=== PATIENT | female | born 1950 | race Caucasian/White ===

== ENCOUNTER 2016-09-29 18:41 | Inpatient (IN) | payer OTHER ==
[~2016-09-29] VITALS: Ht 162.6 cm; Wt 112.4 kg
--- NOTE | ~2016-09-29 | HC ---
[facility] [place] [address] CONSULTATION Name: EDWIN BARON Room #: 455-P [place] IN M.R.#: [id number] Admission: 09/29/16 Attend Phys: Carla Jaffe MD Discharge: Date of : 50 Report #: [id number] THIS REPORT FOR: //name// CC: Cathy Jaffe The patient is a 65-year-old obese white female who had a fall at home, was admitted with right hip and wrist pain. CT of the head was negative and wrist and hip x-rays were negative. She does have a prior history of nonalcoholic cirrhosis and has had problems with ongoing diarrhea. She was seen by gastroenterology and is to have a barium esophagram later today. She is noted to have a history of esophageal varices. She also has multiple leg wounds, which are being monitored. She does have a prior history of a peripheral neuropathy and a left foot drop that she relates back to a prior back surgery. We are seeing the patient in rehabilitation medicine consultation. PAST MEDICAL HISTORY: Includes hypertension, right nephrectomy, Appendectomy, , hysterectomy, chronic back pain, bipolar disorder, GERD, anemia, irritable bowel syndrome, prior history of a CVA, insulin-dependent diabetes mellitus, right knee surgery. PAST SURGICAL HISTORY: As noted above. HABITS: No history of tobacco or ETOH abuse. ALLERGIES: Multiple, see listing. MEDICATIONS: Please see the full medication listing. SOCIAL HISTORY: Lives in a house with a female significant other, premorbid cane ambulator inside and used the walker when she was outside. Two steps in with 12 inside. REVIEW OF SYSTEMS: Notes the wrist and hip pain are little better. Has problems with the diarrhea. She did not offer any complaints of chest pain, shortness of breath or abdominal discomfort. She does have the peripheral neuropathy with distal lower extremity numbness. PHYSICAL EXAMINATION: GENERAL: A 65-year-old white female in no obvious distress. She is significantly obese. VITAL SIGNS: Last recorded temperature is 98.2, pulse 103, respirations 20, blood pressure 99/51. She is a good historian. HEENT: Facies are symmetric. EXTREMITIES: Functional range of motion of both upper extremities. Strength is a grade 3+ to 4-/5. DTRs are trace to 1. Lower extremities, she has multiple small excoriations over her lower extremities. There are some punctate wounds. [facility] [address] [place] [address] CONSULTATION Name: EDWIN BARON Room #: 455-P [place] IN M.R.#: [id number] Admission: 09/29/16 Attend Phys: Carla Jaffe MD Discharge: Date of : 50 Report #: [id number] No focal calf swelling. She does have weakness of the left ankle in dorsiflexion, grade 3- to 3. She has decreased sensation mild to proprioception bilateral large toes. Strength of her lower extremities is probably a grade 4- except for that left ankle, which is weak in dorsiflexion. She was able to sit to stand with contact guard assistance and she ambulated 20 feet min assist with a front-wheeled walker. She does have problems with occasional right knee buckling. ASSESSMENT: A 65-year-old white female with the following problem list: 1. Fall at home. Right wrist and hip x-rays are negative. 2. Acute renal insufficiency, which has improved. 3. Multiple leg wound/open ulcers. 4. Diarrhea with history of severe gastroesophageal reflux disease. To have a barium esophagram today. 5. Hypertension. 6. Protein-calorie malnutrition. 7. Diabetes mellitus with peripheral neuropathy. 8. Premorbid left foot drop. 9. History of esophageal varices. PLAN: Therapies are working with her on transfers, mobility issues and will be assessing her ADLs. She refuses any type of nursing facility. I encouraged her to work hard in her therapies to try to further improve her strength and endurance. Hopefully, she will be able to return back home with home health care as she further medically stabilizes. Insurance will otherwise need to be checked regarding rehab therapy options. We will follow along with you. <ELECTRONICALLY SIGNED> By: Rogelio Neil MD 10/11/16 1523 1054 2325 Rogelio Neil MD /nt
--- NOTE | ~2016-09-29 | EKG ---
[place] [address] [facility] [place] [address] ELECTROCARDIOGRAM REPORT Name: MARIO BARONBRAVO KILGORE Room #: 455-P ADM IN M.R.#: [id number] Admission: 09/29/16 Attend Phys: Sahil Brown DO Discharge: Date of : 50 Report #: [id number] THIS REPORT FOR: //name// [facility] ED Test Date: 2016-09-29 Test Time: 21:38:59 Pat Name: EDWIN BARON Department: Room: [facility] Gender: F Log Getter: RK : 1950 Requested By: Valencia Castro Order Number: [id number] MD: Jose Gagnon Measurements Intervals [place] Rate: 56 P: -22 MS: 118 QRS: 6 QRSD: 85 T: 44 QT: 525 QTc: 507 Interpretive Statements Sinus rhythm Ventricular premature complex Borderline short MS interval Borderline T wave abnormalities Prolonged QT interval Compared to ECG 01/01/2015 19:13:47 Ventricular premature complex(es) now present T-wave abnormality now present Electronically Signed On 09-30-2016 8:23:37 CDT by Jose Gagnon [email or web address] <ELECTRONICALLY SIGNED> By: Jose Gagnon MD, [facility] 09/30/16 0823 37 37 Jose Gagnon MD, [facility] /EPI
--- NOTE | ~2016-09-29 | EKG ---
[address] [place] [address] ELECTROCARDIOGRAM REPORT Name: EDWIN BARONAntonio Room #: 455-P ADM IN M.R.#: [id number] Admission: 09/29/16 Attend Phys: Carla Jaffe MD Discharge: Date of : 50 Report #: [id number] THIS REPORT FOR: //name// [facility] Test Date: 2016-10-05 Test Time: 09:50:42 Pat Name: EDWIN BARON Department: Room: 455 P Gender: F Information Systems Audit Manager: PJ : 1950 Requested By: Francisco Javier Bahena Order Number: [id number] MD: Jose Gagnon Measurements Intervals [place] Rate: 48 P: -13 MO: 152 QRS: 11 QRSD: 96 T: 37 QT: 540 QTc: 483 Interpretive Statements Sinus bradycardia Abnormal R-wave progression, early transition Compared to ECG 09/29/2016 21:38:59 Low QRS voltage now present Sinus rhythm no longer present Ventricular premature complex(es) no longer present Electronically Signed On 10-06-2016 8:14:31 CDT by Jose Gagnon [email or web address] <ELECTRONICALLY SIGNED> By: Jose Gagnon MD, [facility] 10/06/16 0814 0950 0950 Jose Gagnon MD, [facility] /EPI
--- NOTE | ~2016-09-29 | P ---
[facility] [place] [address] PROCEDURE REPORT Name: EDWIN BARON Room #: 455-P ADM IN M.R.#: [id number] Admission: 09/29/16 Attend Phys: Carla Jaffe MD Discharge: Date of : 50 Report #: [id number] THIS REPORT FOR: //name// CC: Cathy Jaffe MD DATE OF SERVICE: 10/05/[address] Carla Jaffe and Dr. Cathy Yanes. CHIEF COMPLAINT: This is a very pleasant 65-year-old white female who has recurrent dysphagia. She has had multiple EGDs and dilatations done in the past. She has been noted previously to have had a fundoplication performed. She has been noted on one occasion in the old records that I have for reviewed to have grade 1 esophageal varices. She has had an upper GI series that reveals narrowing just distal to the end of the esophagus, uncertain etiology, but it may be part of her previous fundoplication. EGD is being performed today to evaluate for the causes for her dysphagia and to pass a dilator hopefully to alleviate her dysphagia. She says this has helped significantly in the past. Informed consent for this procedure was obtained prior to the administration of any medication. The risks of the procedure which include bleeding, perforation, infection, complications of sedation and the possibility I could miss something have been explained to the patient and she has indicated her consent by signing. Propofol was slowly titrated before and during this procedure for the patient comfort by the anesthesia service. The Fujinon upper videoscope was introduced through the upper esophageal sphincter and advanced under direct visualization to the descending duodenum. Findings are noted on withdrawal of the scope. The duodenal mucosa appears normal throughout its entirety. Pylorus, normal mucosa. Antrum, mildly erythematous mucosa. Body, mildly erythematous mucosa and portal hypertensive gastropathy is noted. Body portal hypertensive gastropathy is noted. Cardia and fundus, portal hypertensive gastropathy is noted. Retroflex view reveals a partially intact fundoplication particularly around the distal esophagus appears to the intact, but the gastric wrap itself appears to have come down, so I think there may be some scarring right at the level of the hiatal hernia that has kept the upper stomach/distal esophagus closed. This may be the source of her dysphagia. I saw no abnormalities mucosally at this level. The scope was then withdrawn up above the Z line which is appropriately located at the top of the gastric folds and appears normal. The esophageal mucosa appears normal throughout its entirety. Scope was advanced down into the stomach again, a guidewire was again advanced through the scope. The scope was withdrawn over the guidewire and then #51 Yemeni Savary dilator was passed over the guidewire without difficulty. The guidewire and the dilator were removed, [address] [address] PROCEDURE REPORT Name: EDWIN BARON Room #: 455-P [facility] IN M.R.#: [id number] Admission: 09/29/16 Attend Phys: Carla Jaffe MD Discharge: Date of : 50 Report #: [id number] and the TiVoinon upper videoscope was reintroduced through the upper esophageal sphincter and advanced under direct visualization to the distal stomach. Findings are noted. There were been no change in the appearance of the stomach distally or proximally. The scope was then withdrawn into the esophagus. The Z line is intact. I saw no evidence of bleeding in the stomach or the esophagus. I saw no evidence of any mucosa tear in the distal esophagus. The esophageal mucosa appears normal as did prior to the dilatation. The scope was withdrawn. The patient went to the recovery area in stable condition. She tolerated the procedure well. IMPRESSION: 1. Portal hypertensive gastropathy. This has been previously biopsied for H. pylori and was negative. 2. Fundoplication with tight area in the very proximal cardia of the stomach just below the Z-line that I think is probably causing her to have some dysphagia this is apparently relieved with Savary dilatation. 3. Normal appearing esophagus and duodenum. I saw no evidence of any gastric or esophageal varices. RECOMMENDATIONS: My recommendations are to continue on her current medication regimen. Thank you very much once again for allowing me to participate in her care. <ELECTRONICALLY SIGNED> By: Bárbara Love DO 10/06/16 0831 1108 2345 Bárbara Love DO /nt
[~2016-09-29 18:41] MED LIST: ACCUNEB SO1.25 MG/1 PO; ACETAMINOPHEN325 M1 PO; AMBIEN 10 MG TA10 MG PO; AMOXICILLIN 50500 MG PO; AUGMENTIN 875875 MG PO; CARAFATE 1 GM TA1 G1 PO; CARAFATE 11 GM/10 M1 PO; CEPACOL SORE T1 EAC9 PO; CIPRO500 MG PO; CLONAZEPAM 0.50.5 M1 PO; CLONAZEPAM 1 MG1 M1 PO; COLACE 100 MG100 MG PO; COLACE100 MG PO; CYMBALTA30 MG PO; CYMBALTA60 MG PO; DIABETA 2.5MG2.5 MG PO; DIABETA 5MG TABL5 MG; DIFLUCAN100 MG PO; DIPHENHIST25 M2 PO; DUONEB 2.5-0.5 M3 ML INH; ENABLEX 7.5 MG7.5 M1 PO; FEOSOL325 M1 PO; FLAGYL500 MG PO; GLUCOTROL5 MG PO; GLYCOLAX17 GM PO; HUMALOG100 UNIT/1 SUBQ; HYOSCYAMINE0.125 M1 SUBLING; HYOSCYAMINE0.125 MG PO; KLOR-CON 10 ER10 MEQ PO; LEVEMIR SUBQ; LEVSIN0.125 MG PO; LOPRESSOR 50 MG50 M1 PO; LOPRESSOR50 PO; MILK OF MA2400 MG/10 PO; MIRALAX17 GM PO; MOTION RELIEF25 MG PO; NEURONTIN 300300 M1 PO; NEURONTIN 400M400 M2 PO; NOHOMEMEDICATIONS; NYSTATIN 1100000 U/M PO; NYSTATIN-TRIAMC15 G1; OCEAN45 ML NS; OLANZAPINE5 MG PO; OXYCODONE HCL 55 MG PO; OXYCODONE HCL5 M1 PO; OXYCONTIN10 M1 PO; PERCOCET 5-3251 EACH PO; PERCOCET 7.5-31 EACH PO; PERCOCET PO; PRILOSEC20 MG PO; PRILOSEC40 MG PO; PROBIOTIC1 EAC1 PO; PROMETHAZINE12.5 M1 PO; PROPRANOLOL 1010 M1 PO; PROTONIX40 M1 PO; REMERON45 MG PO; RESTORIL7.5 MG PO; SENOKOT-S1 TA1 PO; TRANSDERM-SCO1 PATC1 TD; TRAZODONE HCL50 MG PO; VALIUM5 MG PO; ZOFRAN ODT4 MG SUBLING
[2016-09-29 18:42] VITALS: BP 151/68
[2016-09-29 19:04] LABS: ABSOLUTE NEUTROPHILS 2.5 thou/uL (1.4-8.2); BASOPHILS 1.2 % (0.0-2.0); EOSINOPHILS 1.8 % (0.0-3.0); HEMATOCRIT 31.8 % (37.0-47.0); HEMOGLOBIN 10.6 gm/dL (12.0-15.0); MCHC 33.4 g/dL (28.0-37.0); MCV 92.8 fL (80.0-100.0); MONOCYTES 7.2 % (1.0-8.0); PLATELET COUNT 126 thou/uL (150-400); POLYS 45.8 % (36.0-66.0); RBC 3.43 mil/uL (4.20-5.00); RDW 19.3 % (10.5-14.5); WBC 5.5 thou/uL (4.0-11.0)
[2016-09-29 19:05] LABS: MANUAL DIFF NO
[2016-09-29 19:13] LABS: CALCIUM 7.6 mg/dL (8.5-10.1); CREATININE 1.1 mg/dL (0.6-1.0); POTASSIUM 4.2 mmol/L (3.5-5.1)
[2016-09-29 19:18] LABS: ALBUMIN 1.8 g/dL (3.4-5.0); DIRECT BILIRUBIN 0.3 mg/dL (<0.1-0.3); TOTAL BILIRUBIN 0.9 mg/dL (<0.1-1.0); TOTAL PROTEIN 6.4 g/dL (6.4-8.2)
[2016-09-29] MEDS ORDERED: BELSOMRA20 MG PO (21:49)
[2016-09-29] MEDS ORDERED: LASIX 40 MG TAB40 M2 PO (21:50)
[2016-09-29] MEDS ORDERED: POTASSIUM20 PO (21:50)
[2016-09-29] MEDS ORDERED: LEVEMIR SUBQ (21:50)
[2016-09-29] MEDS ORDERED: BUSPIRONE HCL10 MG PO (21:51)
[2016-09-29] MEDS ORDERED: HYDROXYZINE HCL25 M1 PO (21:51)
[2016-09-29] MEDS ORDERED: ONDANSETRON HCL4 M2 PO (21:52)
[2016-09-29] MEDS ORDERED: ZANAFLEX4 MG PO (21:52)
[2016-09-29] MEDS ORDERED: PROBIOTIC1 EAC1 PO (21:52)
[2016-09-29] MEDS ORDERED: JUBLIA4 ML TP (21:53)
[2016-09-29] MEDS ORDERED: PANTOPRAZOLE SO40 M1 PO (21:53)
[2016-09-29] MEDS ORDERED: ZETIA10 MG PO (21:54)
[2016-09-29 23:00] VITALS: BP 149/89
[2016-09-29 23:39] VITALS: BP 164/91
[2016-09-30 04:23] VITALS: BP 87/41
[2016-09-30 06:51] LABS: ALBUMIN 1.7 g/dL (3.4-5.0); CALCIUM 7.4 mg/dL (8.5-10.1); CREATININE 1.2 mg/dL (0.6-1.0); MAGNESIUM 1.7 mg/dL (1.8-2.4); POTASSIUM 4.5 mmol/L (3.5-5.1); TOTAL BILIRUBIN 0.7 mg/dL (<0.1-1.0); TOTAL PROTEIN 5.8 g/dL (6.4-8.2)
[2016-09-30 07:20] LABS: FOLIC ACID 4.4 ng/mL (8.6-58.9); TSH 8.096 uIU/mL (0.358-3.740)
[2016-09-30 08:00] VITALS: BP 94/46
[2016-09-30 12:54] VITALS: BP 93/40
[2016-09-30 16:30] VITALS: BP 102/49
[2016-09-30 20:30] VITALS: BP 109/85
[2016-10-01 03:35] VITALS: BP 119/43
[2016-10-01 03:51] LABS: ABSOLUTE NEUTROPHILS 1.9 thou/uL (1.4-8.2); BASOPHILS 1.2 % (0.0-2.0); EOSINOPHILS 2.2 % (0.0-3.0); HEMATOCRIT 29.4 % (37.0-47.0); HEMOGLOBIN 9.8 gm/dL (12.0-15.0); LYMPHOCYTES 47.4 % (24.0-44.0); MANUAL DIFF NO; MCH 31.3 pg (26.0-34.0); MCHC 33.3 g/dL (28.0-37.0); MCV 94.1 fL (80.0-100.0); MONOCYTES 9.5 % (1.0-8.0); PLATELET COUNT 106 thou/uL (150-400); POLYS 39.7 % (36.0-66.0); RBC 3.13 mil/uL (4.20-5.00); RDW 19.2 % (10.5-14.5); WBC 4.7 thou/uL (4.0-11.0)
[2016-10-01 03:57] LABS: CALCIUM 7.1 mg/dL (8.5-10.1); CREATININE 1.1 mg/dL (0.6-1.0); POTASSIUM 4.3 mmol/L (3.5-5.1)
[2016-10-01 07:51] VITALS: BP 114/77
[2016-10-01 11:32] VITALS: BP 129/54
[2016-10-01 15:23] VITALS: BP 122/55
[2016-10-01 15:51] LABS: URINE BILIRUBIN NEGATIVE (Negative); URINE BLOOD NEGATIVE (Negative); URINE COLOR YELLOW; URINE GLUCOSE-RANDOM* NEGATIVE (Negative); URINE KETONES NEGATIVE (Negative); URINE LEUKOCYTES-REFLEX NEGATIVE (Negative); URINE PROTEIN (DIPSTICK) NEGATIVE (Negative); URINE SPECIFIC GRAVITY 1.025 (1.003-1.035)
[2016-10-01 20:31] VITALS: BP 129/49
[2016-10-01 23:10] LABS: GLYCOHEMOGLOBIN (HGB A1C) 5.6 % (4.8-5.6)
[2016-10-02 04:14] VITALS: BP 94/45
[2016-10-02 04:34] LABS: INR 1.3; PROTIME 13.9 Seconds (9.3-11.4)
[2016-10-02 04:38] LABS: CALCIUM 7.4 mg/dL (8.5-10.1); POTASSIUM 4.5 mmol/L (3.5-5.1)
[2016-10-02 08:00] VITALS: BP 104/73
[2016-10-02 12:20] VITALS: BP 147/67
[2016-10-02 16:40] VITALS: BP 106/61
[2016-10-02 19:50] VITALS: BP 110/56
[2016-10-03 04:00] VITALS: BP 102/30
[2016-10-03 05:09] LABS: CALCIUM 7.6 mg/dL (8.5-10.1); CREATININE 1.1 mg/dL (0.6-1.0); POTASSIUM 4.4 mmol/L (3.5-5.1)
[2016-10-03 08:37] VITALS: BP 99/51
[2016-10-03 13:05] VITALS: BP 110/49
[2016-10-03 16:45] VITALS: BP 97/47
[2016-10-03 19:32] VITALS: BP 105/52
[2016-10-04 03:37] VITALS: BP 93/43
[2016-10-04 08:05] VITALS: BP 96/71
[2016-10-04 12:21] VITALS: BP 106/68
[2016-10-04 15:56] VITALS: BP 112/56
[2016-10-04 19:27] VITALS: BP 95/54
[2016-10-05 04:35] VITALS: BP 111/48
[2016-10-05 07:12] VITALS: BP 103/55
[2016-10-05 12:09] VITALS: BP 120/66
[2016-10-05 13:59] LABS: % SATURATION 24 % (20-39); IRON 34 ug/dL (50-170); TIBC 139 ug/dL (250-450); UIBC 105 ug/dL
[2016-10-05 15:22] VITALS: BP 128/65
[2016-10-05 20:01] VITALS: BP 96/59
[2016-10-06 03:55] VITALS: BP 127/58
[2016-10-06 07:36] VITALS: BP 122/59
[2016-10-06 12:17] VITALS: BP 128/67
[2016-10-06 17:15] VITALS: BP 119/53
[2016-10-06 19:55] VITALS: BP 157/76
[2016-10-07 03:58] VITALS: BP 131/50
[2016-10-07 08:04] VITALS: BP 93/54
[2016-10-07 11:06] LABS: HEMATOCRIT 34.5 % (37.0-47.0); HEMOGLOBIN 11.4 gm/dL (12.0-15.0); MCH 31.2 pg (26.0-34.0); MCHC 33.1 g/dL (28.0-37.0); MCV 94.1 fL (80.0-100.0); RBC 3.67 mil/uL (4.20-5.00); RDW 19.4 % (10.5-14.5); WBC 5.5 thou/uL (4.0-11.0)
[2016-10-07 11:18] VITALS: BP 133/65
[2016-10-07 11:18] LABS: CALCIUM 7.8 mg/dL (8.5-10.1); POTASSIUM 3.7 mmol/L (3.5-5.1)
[2016-10-07 11:23] LABS: ALBUMIN 1.8 g/dL (3.4-5.0); TOTAL BILIRUBIN 0.7 mg/dL (<0.1-1.0); TOTAL PROTEIN 6.7 g/dL (6.4-8.2)
[2016-10-07 16:47] VITALS: BP 133/65
[2016-10-07 19:07] LABS: FREE T4 1.16 ng/dL (0.82-1.77)
[2016-10-07 19:20] VITALS: BP 150/99
[2016-10-08 03:14] VITALS: BP 106/42
[2016-10-08 04:59] LABS: HEMATOCRIT 29.8 % (37.0-47.0); HEMOGLOBIN 9.8 gm/dL (12.0-15.0); MCH 31.4 pg (26.0-34.0); RBC 3.14 mil/uL (4.20-5.00); RDW 19.3 % (10.5-14.5)
[2016-10-08 07:57] VITALS: BP 101/64
[2016-10-08 11:06] VITALS: BP 125/55
[2016-10-08 14:58] VITALS: BP 149/76
[2016-10-08 20:12] VITALS: BP 123/92
[2016-10-09 03:28] VITALS: BP 93/44
[2016-10-09 04:50] LABS: HEMATOCRIT 27.5 % (37.0-47.0); HEMOGLOBIN 9.4 gm/dL (12.0-15.0); MCV 94.1 fL (80.0-100.0); RBC 2.92 mil/uL (4.20-5.00); WBC 3.6 thou/uL (4.0-11.0)
[2016-10-09 04:59] LABS: ALBUMIN 1.4 g/dL (3.4-5.0); CALCIUM 7.6 mg/dL (8.5-10.1); TOTAL BILIRUBIN 0.7 mg/dL (<0.1-1.0); TOTAL PROTEIN 5.5 g/dL (6.4-8.2)
[2016-10-09 07:48] VITALS: BP 126/73
[2016-10-09 11:30] VITALS: BP 127/64
[2016-10-09 15:50] VITALS: BP 148/72
[2016-10-09 18:33] VITALS: BP 148/72
[2016-10-10 05:34] LABS: HEMATOCRIT 29.9 % (37.0-47.0); HEMOGLOBIN 9.9 gm/dL (12.0-15.0); MCH 31.4 pg (26.0-34.0); MCHC 33.1 g/dL (28.0-37.0); MCV 94.7 fL (80.0-100.0); RBC 3.16 mil/uL (4.20-5.00); RDW 18.9 % (10.5-14.5); WBC 3.8 thou/uL (4.0-11.0)
[2016-10-10 05:40] LABS: ALBUMIN 1.5 g/dL (3.4-5.0); CALCIUM 7.8 mg/dL (8.5-10.1); CREATININE 1.2 mg/dL (0.6-1.0); POTASSIUM 4.1 mmol/L (3.5-5.1); TOTAL BILIRUBIN 0.6 mg/dL (<0.1-1.0); TOTAL PROTEIN 5.7 g/dL (6.4-8.2)
[2016-10-10 05:48] VITALS: BP 120/55
[2016-10-10 07:09] VITALS: BP 114/66
[2016-10-10 11:20] VITALS: BP 129/59
[2016-10-10 15:16] VITALS: BP 113/63
[2016-10-10 19:25] VITALS: BP 133/74
[2016-10-11 03:57] LABS: ABSOLUTE NEUTROPHILS 2.3 thou/uL (1.4-8.2); BASOPHILS 0.3 % (0.0-2.0); EOSINOPHILS 2.4 % (0.0-3.0); HEMATOCRIT 30.9 % (37.0-47.0); HEMOGLOBIN 10.2 gm/dL (12.0-15.0); LYMPHOCYTES 39.8 % (24.0-44.0); MCH 31.4 pg (26.0-34.0); MCHC 33.1 g/dL (28.0-37.0); MCV 94.7 fL (80.0-100.0); MONOCYTES 7.3 % (1.0-8.0); PLATELET COUNT 108 thou/uL (150-400); POLYS 50.2 % (36.0-66.0); RBC 3.26 mil/uL (4.20-5.00); RDW 18.7 % (10.5-14.5); WBC 4.6 thou/uL (4.0-11.0)
[2016-10-11 04:00] VITALS: BP 88/39
[2016-10-11 04:01] LABS: MANUAL DIFF NO
[2016-10-11 04:04] LABS: CALCIUM 7.4 mg/dL (8.5-10.1); CREATININE 1.1 mg/dL (0.6-1.0); POTASSIUM 4.2 mmol/L (3.5-5.1)
[2016-10-11 07:24] VITALS: BP 86/42
[2016-10-11 12:23] VITALS: BP 131/56
[2016-10-11 19:42] VITALS: BP 110/64
[2016-10-12 03:44] VITALS: BP 98/42
[2016-10-12 07:21] VITALS: BP 104/62
[2016-10-12 09:46] LABS: CLARITY CLEAR; COLOR YELLOW
[2016-10-12 09:58] LABS: BF NUCLEATED CELLS 153; BF RBC 403
[2016-10-12 11:51] LABS: BF NEUTROPHILS 12
[2016-10-12 12:04] VITALS: BP 148/74
[2016-10-12 12:06] LABS: BF MACROPHAGE 0; MANUAL DIFF YES
[2016-10-12 15:07] LABS: BODY FLUID ALBUMIN 0.4 g/dL (()); BODY FLUID PROTEIN 0.8 g/dL (())
== END 2016-10-12 17:03 | disposition home or self-care (01) | DRG 441 ==
LOC: ER 18:41 → EROBS 21:35 → 4W 21:35
PROVIDERS: Emergency Medicine; Family Medicine; Hospitalist; Internal Medicine Endocrinology, Diabetes & Metabolism; Internal Medicine Gastroenterology; Nurse Practitioner; Nurse Practitioner Adult Health; Specialist
PROC: 0W9G3ZZ Drainage of Peritoneal Cavity, Percutaneous Approach (ICD-10-PCS; principal; 2016-10-05)
PROC: 0DJ08ZZ Inspection of Upper Intestinal Tract, Via Natural or Artificial Opening Endoscopic (ICD-10-PCS; 2016-10-10)
DX: K76.0 Fatty (change of) liver, not elsewhere classified (principal); E43 Unspecified severe protein-calorie malnutrition; A04.7 Enterocolitis due to Clostridium difficile; N17.9 Acute kidney failure, unspecified; Z68.41 Body mass index [BMI] 40.0-44.9, adult; K76.6 Portal hypertension; I10 Essential (primary) hypertension; F41.9 Anxiety disorder, unspecified; G89.29 Other chronic pain; M54.9 Dorsalgia, unspecified; F31.9 Bipolar disorder, unspecified; K21.9 Gastro-esophageal reflux disease without esophagitis; E11.42 Type 2 diabetes mellitus with diabetic polyneuropathy; M21.372 Foot drop, left foot; K31.84 Gastroparesis; K58.9 Irritable bowel syndrome, unspecified; K74.60 Unspecified cirrhosis of liver; K31.89 Other diseases of stomach and duodenum; D69.6 Thrombocytopenia, unspecified; R10.9 Unspecified abdominal pain; E11.43 Type 2 diabetes mellitus with diabetic autonomic (poly)neuropathy; D64.9 Anemia, unspecified; K59.00 Constipation, unspecified; Z79.899 Other long term (current) drug therapy; Z90.5 Acquired absence of kidney; Z90.49 Acquired absence of other specified parts of digestive tract; Z90.710 Acquired absence of both cervix and uterus; Z87.81 Personal history of (healed) traumatic fracture; Z86.73 Personal history of transient ischemic attack (TIA), and cerebral infarction without residual deficits; Z79.891 Long term (current) use of opiate analgesic; Z79.4 Long term (current) use of insulin; Z88.1 Allergy status to other antibiotic agents; Z88.8 Allergy status to other drugs, medicaments and biological substances
CPT/HCPCS: 10045; 62110; 62900; 70005

== ENCOUNTER 2016-11-09 16:25 | Inpatient (IN) | payer OTHER ==
[~2016-11-09] VITALS: Ht 162.6 cm; Wt 109.8 kg
[~2016-11-09 16:25] MED LIST changes: +BELSOMRA20 MG PO; +BUSPIRONE HCL10 MG PO; +HYDROXYZINE HCL25 M1 PO; +JUBLIA4 ML TP; +LASIX 40 MG TAB40 M2 PO; +ONDANSETRON HCL4 M2 PO; +PANTOPRAZOLE SO40 M1 PO; +POTASSIUM20 PO; +ZANAFLEX4 MG PO; +ZETIA10 MG PO
[2016-11-09 16:30] VITALS: BP 12/37; BP 124/37
[2016-11-09 17:00] LABS: ABSOLUTE NEUTROPHILS 2.7 thou/uL (1.4-8.2); BASOPHILS 0.9 % (0.0-2.0); EOSINOPHILS 2.3 % (0.0-3.0); HEMATOCRIT 32.7 % (37.0-47.0); HEMOGLOBIN 10.8 gm/dL (12.0-15.0); LYMPHOCYTES 39.6 % (24.0-44.0); MCH 32.5 pg (26.0-34.0); MCHC 33.1 g/dL (28.0-37.0); MONOCYTES 5.5 % (1.0-8.0); PLATELET COUNT 119 thou/uL (150-400); POLYS 51.7 % (36.0-66.0); RBC 3.34 mil/uL (4.20-5.00); RDW 16.6 % (10.5-14.5); WBC 5.3 thou/uL (4.0-11.0)
[2016-11-09 17:03] LABS: MANUAL DIFF NO
[2016-11-09 17:41] LABS: CALCIUM 7.7 mg/dL (8.5-10.1); POTASSIUM 3.6 mmol/L (3.5-5.1)
[2016-11-09 17:44] LABS: ALBUMIN 1.7 g/dL (3.4-5.0); DIRECT BILIRUBIN 0.4 mg/dL (<0.1-0.3); TOTAL PROTEIN 6.4 g/dL (6.4-8.2)
[2016-11-09 18:18] LABS: URINE BILIRUBIN 2+ (Negative); URINE BLOOD NEGATIVE (Negative); URINE COLOR YELLOW; URINE GLUCOSE-RANDOM* NEGATIVE (Negative); URINE KETONES TRACE (Negative); URINE NITRITE NEGATIVE (Negative); URINE PROTEIN (DIPSTICK) 1+ (Negative); URINE SPECIFIC GRAVITY >= 1.030 (1.003-1.035)
[2016-11-09 18:21] LABS: ICTOTEST (BILI CONFIRMATORY) Negative (Negative)
[2016-11-09 18:29] LABS: CASTS None Seen /LPF (None Seen); SQUAMOUS >10 Many /LPF (0-3); URINE WBC 0-5 Rare /HPF (0-5)
[2016-11-09 18:30] LABS: BACTERIA 1-9 Few /HPF (None Seen); CRYSTALS None Seen /LPF (None Seen); URINE RBC 0-2 Rare /HPF (0-2)
[2016-11-09 18:55] VITALS: BP 135/60
[2016-11-09 19:08] VITALS: BP 122/53
[2016-11-09] MEDS ORDERED: LASIX 40 MG TAB40 M2 PO (20:19)
[2016-11-09 23:30] VITALS: BP 124/79
[2016-11-10 05:50] VITALS: BP 85/46
[2016-11-10 07:35] VITALS: BP 89/43
[2016-11-10 10:39] LABS: HEMATOCRIT 31.3 % (37.0-47.0); HEMOGLOBIN 10.5 gm/dL (12.0-15.0); MCH 32.4 pg (26.0-34.0); MCHC 33.4 g/dL (28.0-37.0); RBC 3.23 mil/uL (4.20-5.00); RDW 16.1 % (10.5-14.5); WBC 4.7 thou/uL (4.0-11.0)
[2016-11-10 10:42] LABS: INR 1.3; PROTIME 13.4 Seconds (9.3-11.4)
[2016-11-10] MEDS ORDERED: ZOFRAN ODT4 MG DISSOLVE (10:46)
[2016-11-10 15:12] VITALS: BP 89/43
== END 2016-11-10 16:35 | disposition home or self-care (01) | DRG 947 ==
LOC: ER 16:25 → EROBS 18:23 → 4E 18:23
PROVIDERS: Hospitalist; Nurse Practitioner
PROC: 0W9G3ZZ Drainage of Peritoneal Cavity, Percutaneous Approach (ICD-10-PCS; principal; 2016-11-10)
DX: R18.8 Other ascites (principal); E43 Unspecified severe protein-calorie malnutrition; K72.90 Hepatic failure, unspecified without coma; I10 Essential (primary) hypertension; F41.9 Anxiety disorder, unspecified; G89.29 Other chronic pain; M54.9 Dorsalgia, unspecified; F31.9 Bipolar disorder, unspecified; K58.9 Irritable bowel syndrome, unspecified; K21.9 Gastro-esophageal reflux disease without esophagitis; Z86.73 Personal history of transient ischemic attack (TIA), and cerebral infarction without residual deficits; Z87.81 Personal history of (healed) traumatic fracture; Z88.8 Allergy status to other drugs, medicaments and biological substances; Z90.710 Acquired absence of both cervix and uterus; Z90.5 Acquired absence of kidney; Z90.49 Acquired absence of other specified parts of digestive tract; Z88.6 Allergy status to analgesic agent
CPT/HCPCS: 10183

== ENCOUNTER 2016-11-21 19:05 | Inpatient (IN) | payer OTHER ==
[~2016-11-21] VITALS: Ht 162.6 cm; Wt 111.1 kg
--- NOTE | ~2016-11-21 | EKG ---
[place] [address] [facility] [place] [address] ELECTROCARDIOGRAM REPORT Name: EDWIN BARON JAME Room #: 313-P ADM IN M.R.#: [id number] Admission: 11/21/16 Attend Phys: Jaye Hayes Discharge: Date of : 50 Report #: [id number] THIS REPORT FOR: //name// [facility] ED Test Date: 2016-11-21 Test Time: 19:20:38 Pat Name: EDWIN BARON Department: Room: [facility] Gender: F Special Procedure Technologist: imani gonzalez : 1950 Requested By: Kassi Britt Order Number: [id number] MD: Jose Gagnon Measurements Intervals [place] Rate: 72 P: 0 MT: 168 QRS: -5 QRSD: 93 T: 137 QT: 491 QTc: 538 Interpretive Statements Sinus rhythm Anteroseptal infarct, age indeterminate Prolonged QT interval Compared to ECG 10/05/2016 09:50:42 No significant change was found Electronically Signed On 11-22-2016 8:55:10 CDT by Jose Gagnon [email or web address] <ELECTRONICALLY SIGNED> By: Jose Gagnon MD, [facility] 11/22/16 0855 1920 19 Jose Gagnon MD, [facility] /EPI
--- NOTE | ~2016-11-21 | CNG ---
[facility] [place] [address] CYTO-NONGYN REPORT PROCEDURE Name: EDWIN BA Room #: 313-P ADM IN M.R.#: [id number] Admission: 11/21/16 Date of : 50 Discharge: Report #: [id number] Path Case #: [id number] CYTOPATHOLOGY REPORT COLLECTION DATE: 11/22/2016 RECEIVED DATE: 11/22/2016 SUBMITTING PHYS: Dr. Jaye Hayes OTHER PHYS: Dr. Keith Yanes CLINICAL HISTORY: Ascites SPECIMEN(S) RECEIVED: A.Abdominal fluid * * * * * * * * * * * * FINAL DIAGNOSIS: Abdominal fluid: - Atypical cells identified. - Atypical cells identified amongst reactive mesothelial and inflammatory cells and fungal contaminants. COMMENT: Immunoperoxidase stains Jony-EP4 is negative and calretinin is positive. The atypical cells are mesothelial in origin. Patient has a history of liver failure and hence these could be secondary to that. However suggest clinical correlation and follow up as clinically indicated. (SHA:; d/t: 11/23/16) PATHOLOGIST: Gil Preston M.D. REPORT ELECTRONICALLY SIGNED BY: Gil Preston M.D. DATE/TIME: 11/24/2016 10:09 * * * * * * * * * * * * GROSS PATHOLOGY: A. Abdominal fluid: The specimen is submitted unfixed, labeled "Edwin Ba". Received by the Cytology Department is 33 mL of clear yellow fluid. One ThinPrep slide and a cell block were prepared. (mm 11.22.2016) EMPLOYEE RELATIONS CONSULTANT(S): YIMI White([facility]) INITIAL CPT CODE(S): A; 35407, 74518, 44328, 09987 Professional [facility] performed by [facility] at [facility] [address], [place] [address] [facility] [address] [place] [address] CYTO-NONGYN REPORT PROCEDURE Name: EDWIN BA Room #: 313-P ADM IN M.R.#: [id number] Admission: 11/21/16 Date of : 50 Discharge: Report #: [id number] Path Case #: [id number] Technical services performed by [facility] at [address] [place] [address], [facility] [address], [place] [address]. [address], [facility] [address] [place] [address] PHONE: [phone] DIRECTOR: Gera Garcia M.D. * * * END OF REPORT * * *
[~2016-11-21 19:05] MED LIST changes: +ZOFRAN ODT4 MG DISSOLVE
[2016-11-21 19:06] VITALS: BP 133/52
[2016-11-21 19:57] LABS: ABSOLUTE NEUTROPHILS 2.9 thou/uL (1.4-8.2); BASOPHILS 1.5 % (0.0-2.0); EOSINOPHILS 1.2 % (0.0-3.0); HEMATOCRIT 33.5 % (37.0-47.0); HEMOGLOBIN 11.5 gm/dL (12.0-15.0); LYMPHOCYTES 43.3 % (24.0-44.0); MANUAL DIFF NO; MCH 32.9 pg (26.0-34.0); MCHC 34.3 g/dL (28.0-37.0); MCV 95.9 fL (80.0-100.0); PLATELET COUNT 151 thou/uL (150-400); RBC 3.49 mil/uL (4.20-5.00); RDW 16.1 % (10.5-14.5); WBC 6.1 thou/uL (4.0-11.0)
[2016-11-21 20:07] LABS: ANION GAP 6 mmol/L (7-16); BUN 13 mg/dL (7-18); CHLORIDE 102 mmol/L (98-107); CO2 31 mmol/L (21-32); CREATININE 1.3 mg/dL (0.6-1.0); GLUCOSE 115 mg/dL (74-106); POTASSIUM 3.6 mmol/L (3.5-5.1); SODIUM 139 mmol/L (136-145)
[2016-11-21 20:13] LABS: ALBUMIN 1.6 g/dL (3.4-5.0); ALKALINE PHOSPHATASE 356 U/L (46-116); SGOT 32 U/L (15-37); SGPT 17 U/L (30-65); TOTAL BILIRUBIN 1.2 mg/dL (<0.1-1.0); TOTAL PROTEIN 6.6 g/dL (6.4-8.2); TROPONIN-I < 0.04 ng/mL (<0.04-0.07)
[2016-11-21 20:43] LABS: INR 1.2; PROTIME 12.7 Seconds (9.3-11.4)
[2016-11-21 20:44] LABS: URINE BLOOD TRACE (Negative); URINE COLOR YELLOW; URINE GLUCOSE-RANDOM* NEGATIVE (Negative); URINE KETONES TRACE (Negative); URINE NITRITE NEGATIVE (Negative); URINE PROTEIN (DIPSTICK) TRACE (Negative); URINE UROBILINOGEN >= 8.0 E.U./dl (0.2-1.0)
[2016-11-21 20:45] LABS: URINE BILIRUBIN NEGATIVE (Negative)
[2016-11-21 22:38] VITALS: BP 133/72
[2016-11-21 23:27] VITALS: BP 150/60
[2016-11-22 04:17] VITALS: BP 93/48
[2016-11-22 05:31] LABS: HEMATOCRIT 29.8 % (37.0-47.0); HEMOGLOBIN 10.2 gm/dL (12.0-15.0); MCHC 34.2 g/dL (28.0-37.0); MCV 96.4 fL (80.0-100.0); RBC 3.09 mil/uL (4.20-5.00); RDW 16.3 % (10.5-14.5); WBC 5.7 thou/uL (4.0-11.0)
[2016-11-22 05:34] LABS: INR 1.3; PROTIME 13.4 Seconds (9.3-11.4)
[2016-11-22 05:44] LABS: ALBUMIN 1.3 g/dL (3.4-5.0); CALCIUM 7.5 mg/dL (8.5-10.1); CREATININE 1.2 mg/dL (0.6-1.0); POTASSIUM 3.6 mmol/L (3.5-5.1); TOTAL BILIRUBIN 0.9 mg/dL (<0.1-1.0); TOTAL PROTEIN 5.7 g/dL (6.4-8.2)
[2016-11-22 07:33] VITALS: BP 90/49
[2016-11-22 15:32] LABS: BF NUCLEATED CELLS 114; BF RBC 580
[2016-11-22 15:33] LABS: CLARITY SLIGHTLY CLOUDY; COLOR YELLOW; MANUAL DIFF YES; TOTAL VOLUME 60 mL
[2016-11-22 16:09] VITALS: BP 129/53
[2016-11-22 20:00] VITALS: BP 112/56
[2016-11-22 21:11] LABS: BODY FLUID AMYLASE < 3 U/L (()); BODY FLUID GLUCOSE 109 mg/dL (()); BODY FLUID LDH 43 IU/L (()); BODY FLUID PROTEIN 0.8 g/dL (())
[2016-11-23] VITALS: BP 63/44
[2016-11-23 00:10] LABS: BODY FLUID ALBUMIN 0.3 g/dL (())
[2016-11-23 04:00] VITALS: BP 82/47
[2016-11-23 06:03] LABS: ALBUMIN 1.4 g/dL (3.4-5.0); CALCIUM 7.3 mg/dL (8.5-10.1); CREATININE 1.2 mg/dL (0.6-1.0); POTASSIUM 3.4 mmol/L (3.5-5.1); TOTAL BILIRUBIN 0.6 mg/dL (<0.1-1.0); TOTAL PROTEIN 5.1 g/dL (6.4-8.2)
[2016-11-23 07:52] VITALS: BP 151/77
[2016-11-23] MEDS ORDERED: SPIRONOLACTONE100 M1 PO (10:07)
[2016-11-23 20:30] VITALS: BP 108/58
[2016-11-24 05:00] VITALS: BP 101/59
[2016-11-24 08:03] VITALS: BP 109/60
[2016-11-24 13:31] LABS: BF MACROPHAGE 70; BF NEUTROPHILS 10
== END 2016-11-24 15:00 | DRG 432 ==
LOC: ER 19:05 → 3N 21:57 → EROBS 21:57 → 3N 22:40
PROVIDERS: Hospitalist; Nurse Practitioner Family; Physician Assistant
PROC: 0W9G3ZZ Drainage of Peritoneal Cavity, Percutaneous Approach (ICD-10-PCS; principal; 2016-11-22)
DX: K74.60 Unspecified cirrhosis of liver (principal); E43 Unspecified severe protein-calorie malnutrition; N17.9 Acute kidney failure, unspecified; R18.8 Other ascites; Z68.41 Body mass index [BMI] 40.0-44.9, adult; F41.9 Anxiety disorder, unspecified; F31.9 Bipolar disorder, unspecified; G89.29 Other chronic pain; M54.9 Dorsalgia, unspecified; K21.9 Gastro-esophageal reflux disease without esophagitis; N18.9 Chronic kidney disease, unspecified; K59.00 Constipation, unspecified; K29.70 Gastritis, unspecified, without bleeding; E11.22 Type 2 diabetes mellitus with diabetic chronic kidney disease; D64.9 Anemia, unspecified; K75.81 Nonalcoholic steatohepatitis (NASH); M19.90 Unspecified osteoarthritis, unspecified site; E87.6 Hypokalemia; K58.9 Irritable bowel syndrome, unspecified; I12.9 Hypertensive chronic kidney disease with stage 1 through stage 4 chronic kidney disease, or unspecified chronic kidney disease; Z86.73 Personal history of transient ischemic attack (TIA), and cerebral infarction without residual deficits; Z79.899 Other long term (current) drug therapy; Z86.14 Personal history of Methicillin resistant Staphylococcus aureus infection; Z90.710 Acquired absence of both cervix and uterus; Z88.8 Allergy status to other drugs, medicaments and biological substances; Z88.1 Allergy status to other antibiotic agents; Z88.6 Allergy status to analgesic agent; Z90.49 Acquired absence of other specified parts of digestive tract; Z87.81 Personal history of (healed) traumatic fracture
CPT/HCPCS: 10096; 10795; 27001; 52295

== ENCOUNTER 2017-04-23 17:24 | Inpatient (IN) | payer OTHER ==
[~2017-04-23] VITALS: Ht 160 cm; Wt 94.2 kg
--- NOTE | ~2017-04-23 | HC ---
[facility] [place] [address] CONSULTATION Name: EDWIN BARON Room #: 356-P [facility] IN M.R.#: [id number] Admission: 04/23/17 Attend Phys: Jaye Hayes Discharge: Date of : 50 Report #: [id number] THIS REPORT FOR: //name// CC: FAM physician/PCP Jaye Bates PRIMARY CARE PHYSICIAN: Dr. Cathy Yanes. REFERRAL PHYSICIAN: Dr. Sylvester Bates. REASON FOR REFERRAL: Dyspnea, abnormal chest x-ray. HISTORY OF PRESENT ILLNESS: The patient is a 66-year-old white female who presents to the emergency room with progressive dyspnea. Chest x-ray revealed right-sided pleural effusion. The patient was admitted. A pulmonary consultation was requested. The patient has complex multiple medical problems including cirrhosis and ascites from nonalcoholic fatty liver disease. She has had multiple paracenteses in the past. The patient was in her usual state of health until about 1-2 weeks ago when she started to develop mild abdominal pain, then increasing dyspnea. With worsening symptoms, she presented to the emergency room. Chest x-ray performed in the ER revealed qwsd-ax-oymetzqj sized right-sided pleural effusion and/or infiltrates. The patient otherwise denies any fever, chest pain, productive cough, nausea, vomiting, diarrhea. PAST MEDICAL HISTORY: Cirrhosis due to nonalcoholic fatty liver disease, ascites with multiple paracenteses in the past, hypertension, anxiety, depression, chronic back pain, gastroesophageal reflux disease, chronic anemia, irritable bowel syndrome, history of CVA, diabetes mellitus type 2, history of diverticulitis with past history of anasarca related to hepatic cirrhosis. PAST SURGICAL HISTORY: Notable for tonsillectomy, appendectomy, laparoscopic cholecystectomy, , hysterectomy, tubal ligation, past spine surgery, elbow surgery, right carpal tunnel surgery, Bhanu fundoplication, back surgery, right knee surgery, ankle surgery. ALLERGIES: Multiple, which include ASPIRIN, CARBAMAZEPINE, DICLOFENAC, FAMOTIDINE, METFORMIN, METOCLOPRAMIDE, MISOPROSTOL, PROCHLORPERAZINE, SEROQUEL, RANITIDINE , TETRACYCLINE. [facility] [address] [place] [address] CONSULTATION Name: EDWIN BARON Room #: 356-P [facility] IN ..#: [id number] Admission: 04/23/17 Attend Phys: Jaye Hayes Discharge: Date of : 50 Report #: [id number] REPORTED MEDICATIONS: Include Lopressor, Zofran, Protonix, Neurontin, insulin supplements, Remeron, Carafate, Levemir, potassium supplements, hydroxyzine, Zanaflex, ____, buspirone, Aldactone, tizanidine, Cymbalta, Zetia, Lasix, ____, Flonase. FAMILY HISTORY: Noncontributory. SOCIAL HISTORY: She denies any tobacco or alcohol use. She lives with a friend in the [place] area. REVIEW OF SYSTEMS: As mentioned above, is also notable for mild debility and weakness, she gets around with a wheelchair and has done so for more than a year. Otherwise 10-point system review negative. PHYSICAL EXAMINATION: GENERAL: She is awake, alert, in no apparent distress. VITAL SIGNS: Temperature is 98.6 degrees Fahrenheit, pulse is 67, respiratory rate is 18, blood pressure 150/69 mmHg, saturation 99%. HEENT: Normocephalic, atraumatic. NECK: Supple, without any lymphadenopathy or thyromegaly. CHEST: Breath sounds are decreased bilaterally in the bases. No obvious wheezes. No obvious rales. CARDIOVASCULAR: Heart sounds are distant. No obvious murmurs or gallop. There is normal rhythm. Pulses are 2+/4+ bilaterally. BREASTS: Exam deferred. ABDOMEN: Obese, soft, nontender. No organomegaly or masses felt. GENITOURINARY: Deferred. RECTAL: Deferred. EXTREMITIES: No cyanosis, clubbing or edema. LABORATORY DATA: Portable chest x-ray mentioned above showing [id number] right-sided pleural effusion and/or infiltrates. BNP is 1900. EKG shows atrial fibrillation with multiple ventricular premature complexes, low QRS complex, no acute ischemic changes. CT abdomen and pelvis revealed presence of ascites, decreased from November 2016, cirrhosis, right pleural effusion with atelectasis and infiltrates, which appears to be new. Electrolytes unremarkable except for creatinine of 1.2. SGOT is 39, SGPT 26, alkaline phosphatase 305. Albumin 1.5. WBC 6900, hemoglobin 9.8, platelets mildly decreased, no evidence of bandemia. IMPRESSION: 1. Progressive dyspnea in this 66-year-old white female. Chest x-ray shows fkvr-[id number]-pendgrbz right-sided pleural effusion, possible infiltrates. Etiology is possibly related to right-sided pleural effusion, possible pneumonia. 2. Cirrhosis due to nonalcoholic fatty liver disease, with history of ascites. The pleural effusion is likely related to liver disease. 3. Renal insufficiency. The patient appears to have chronic kidney disease [facility] [address] [place] [address] CONSULTATION Name: EDWIN BARON Room #: 356-P ADM IN M.R.#: [id number] Admission: 04/23/17 Attend Phys: Jaye Hayes Discharge: Date of : 50 Report #: [id number] with a baseline creatinine ranging anywhere from 1.2-1.9. 4. Anemia, likely chronic. 5. Protein calorie malnutrition, severe with an albumin of 1.5. 6. Hypertension. 7. Diabetes mellitus type 2. RECOMMENDATIONS: 1. Agree with plans for diagnostic thoracentesis. We will send pleural fluid for diagnostic studies including microbiologic and chemistry. Agree with empiric antibiotics for now. We will complete approximately 7 days of antibiotic therapy. We will await the pleural fluid studies. 2. DVT and GI prophylaxis is recommended. Thank you for this consultation. <ELECTRONICALLY SIGNED> By: Antonio Harden MD 04/25/17 1414 1237 1837 Antonio Harden MD /nt
--- NOTE | ~2017-04-23 | 2DMMODE ---
[facility] [address] [place] [address] 2 D/M-MODE ECHOCARDIOGRAM Name: MARIO BARONNDA Bertha Room #: 356-P ADM IN .R.#: [id number] Admission: 04/23/17 Attend Phys: Jaye Akbar Discharge: Date of : 50 Date of Service: 04/24/17 1238 Report #: [id number] THIS REPORT FOR: //name// APPROVED REPORT Study performed: 04/24/2017 11:20:00 EXAM: Comprehensive 2D, Doppler, and color-flow Echocardiogram Patient Location: Bedside Room #: 356 Status: routine BSA: 1.95 HR: 61 bpm BP: 159/61 mmHg Rhythm: Irregular Other Information Study Quality: Adequate Indications Short of breath 2D Dimensions RVDd: 35.32 mm LVEF(%): 66.45 (>50%) IVSd: 10.79 (7-11mm) LVOT Diam: 19.83 (18-24mm) LVDd: 44.46 mm PWd: 11.50 (7-11mm) Ascending Ao: 32.89 (22-36mm) LVDs: 28.23 (25-40mm) Aortic Root: 27.38 mm IVC: 22.00 mm Figueroa's LVEF: 66.45 % Volumes Left Atrial Volume (Systole) Single Plane 4CH: 102.09 mL Single Plane 2CH: 95.73 mL LA ESV Index: 54.00 mL/m2 Aortic Valve AoV Peak Barry.: 1.77 m/s AO Peak Gr.: 12.47 mmHg LVOT Max P.77 mmHg LVOT Max V: 1.30 m/s ROSIO Vmax: 2.27 cm2 Mitral Valve E/A Ratio: 1.6 MV Decel. Time: 243.28 ms [facility] [address] [place] [address] 2 D/M-MODE ECHOCARDIOGRAM Name: EDWIN BARON Room #: 356-[facility] IN M.R.#: [id number] Admission: 04/23/17 Attend Phys: Jaye Akbar Discharge: Date of : 50 Date of Service: 04/24/17 1238 Report #: [id number] MV E Max Barry.: 0.92 m/s MV A Barry.: 0.57 m/s MV PHT: 70.55 ms IVRT: 79.58 ms Pulmonary Valve PV Peak Barry.: 0.69 m/s PV Peak Gr.: 1.92 mmHg Tricuspid Valve TR Peak Barry.: 3.12 m/s RAP Estimate: 10.00 mmHg TR Peak Gr.: 39.19 mmHg Left Ventricle The left ventricle is normal size. There is normal LV segmental wall motion. There is normal left ventricular wall thickness. Left ventricular systolic function is normal. LVEF is 55-60%. This study is not technically sufficient to allow evaluation of the LV diastolic function. Right Ventricle The right ventricle is normal size. The right ventricular systolic function is normal. Atria Left atrium is severely dilated. Right atrium is mildly dilated. Aortic Valve The Aortic valve is mildly sclerotic. No aortic regurgitation is present. There is no aortic valvular stenosis. Mitral Valve Mild mitral annular calcification. Mild mitral regurgitation. Tricuspid Valve The tricuspid valve is normal in structure. Moderate tricuspid regurgitation. Estimated PAP is 50mmHg. Pulmonic Valve The pulmonary valve is normal in structure. Mild pulmonic regurgitation. Great Vessels The aortic root is normal in size. The ascending aorta is normal in size. IVC is dilated and collapses <50% with [facility] [address] [place] [address] 2 D/M-MODE ECHOCARDIOGRAM Name: EDWIN BARON Bertha Room #: 356-P [facility] IN ..#: [id number] Admission: 04/23/17 Attend Phys: Jaye Akbar Discharge: Date of : 50 Date of Service: 04/24/17 1238 Report #: [id number] inspiration. Pericardium There is no pericardial effusion. <Conclusion> Left ventricular systolic function is normal. There is normal LV segmental wall motion. LVEF 55-60%. Left atrium is severely dilated. The aortic valve is mildly sclerotic, no aortic valvular stenosis or insufficiency. Mild mitral annular calcification. Mild mitral regurgitation. Pulmonary artery pressure of 50mmHg There is no pericardial effusion. <ELECTRONICALLY SIGNED> By: Jose Gagnon MD, FACC 04/24/17 1238 1238 1238 Jose Gagnon MD, FACC /INF
--- NOTE | ~2017-04-23 | EKG ---
[address] [place] [address] ELECTROCARDIOGRAM REPORT Name: EDWIN BARON Room #: 356-P ADM IN M.R.#: [id number] Admission: 04/23/17 Attend Phys: Sylvester Bates MD Discharge: Date of : 50 Report #: [id number] THIS REPORT FOR: //name// [facility] ED Test Date: 2017-04-23 Test Time: 19:03:42 Pat Name: EDWIN BARON Department: Room: 356 Gender: F Product Analyst: ROGE : 1950 Requested By: Russ Gutierrez Order Number: [id number] MD: Erik Seymour Measurements Intervals [place] Rate: 55 P: MS: QRS: 5 QRSD: 84 T: 30 QT: 493 QTc: 472 Interpretive Statements Atrial fibrillation Multiple ventricular premature complexes Low voltage, precordial leads Compared to ECG 11/21/2016 19:20:38 Ventricular premature complex(es) now present Low QRS voltage now present Sinus rhythm no longer present Myocardial infarct finding no longer present Prolonged QT interval no longer present Electronically Signed On 04-23-2017 21:30:19 AUTOMATION QA ANALYST by Erik Seymour [email or web address] <ELECTRONICALLY SIGNED> By: Erik Seymour MD 04/23/170 02 02 Erik Seymour MD /EPI
--- NOTE | ~2017-04-23 | CNG ---
[facility] [place] [address] CYTO-NONGYN REPORT PROCEDURE Name: EDWIN BA Room #: 356-P ADM IN M.R.#: [id number] Admission: 04/23/17 Date of : 50 Discharge: Report #: [id number] Path Case #: [id number] CYTOPATHOLOGY REPORT COLLECTION DATE: 04/24/2017 RECEIVED DATE: 04/24/2017 SUBMITTING PHYS: Dr. Jaye Hayes OTHER PHYS: Dr. Antonio Harden CLINICAL HISTORY: Dyspnea, Ascites, Pleural Effusion, short of air SPECIMEN(S) RECEIVED: A.Pleural fluid * * * * * * * * * * * * FINAL DIAGNOSIS: A. Pleural fluid: - No malignant cells identified. Reactive mesothelial cells are present along with macrophages and inflammatory cells. PATHOLOGIST: Angelique Costa M.D. REPORT ELECTRONICALLY SIGNED BY: Angelique Costa M.D. DATE/TIME: 04/25/2017 16:17 * * * * * * * * * * * * GROSS PATHOLOGY: A. Pleural fluid: The specimen is submitted unfixed, labeled "Edwin Ba". Received by the Cytology Department is 17 mL of cloudy yellow fluid. One ThinPrep slide and a formalin fixed cell block were prepared. (mm 04.24.2017) EXTRUSION DIE REPAIRER(S): YIMI White([facility]) INITIAL CPT CODE(S): A; 20829, 52186 Professional services performed by [facility] at [facility] [address], [place] [address] Technical services performed by [facility] at [address] [place] [address]., [address], [place] [address]. [facility] [address] [place] [address], [facility] [address] [place] [address] PHONE: [phone] [facility] [address] [place] [address] CYTO-NONGYN REPORT PROCEDURE Name: EDWIN BA Bertha Room #: 356-P ADM IN M.R.#: [id number] Admission: 04/23/17 Date of : 50 Discharge: Report #: [id number] Path Case #: [id number] DIRECTOR: Gera Garcia M.D. * * * END OF REPORT * * *
[~2017-04-23 17:24] MED LIST changes: +ALDACTONE100 MG PO; +BACTRIM DS TAB1 EACH PO; +BACTROBAN CREAM30 G1 TOP; +BELSOMRA10 MG PO; +DOXYCYCLINE 10100 MG PO; +FLONASE 0.05%50 MCG NASAL; +FUROSEMIDE 40 M40 M1 PO; +GABAPENTIN 100100 MG PO; +KLOR-CON 1010 MEQ PO; +PERCOCET 10-321 EACH PO; +PROTONIX 20 MG20 M1 PO; +SPIRONOLACTONE100 M1 PO; +TIZANIDINE HCL4 MG PO; +TOPROL XL100 MG PO
[2017-04-23 17:25] VITALS: BP 138/40
[2017-04-23 18:28] LABS: ABSOLUTE NEUTROPHILS 3.3 thou/uL (1.4-8.2); BASOPHILS 1.4 % (0.0-2.0); EOSINOPHILS 1.4 % (0.0-3.0); HEMATOCRIT 29.3 % (37.0-47.0); HEMOGLOBIN 9.8 gm/dL (12.0-15.0); LYMPHOCYTES 42.3 % (24.0-44.0); MCH 34.1 pg (26.0-34.0); MCHC 33.4 g/dL (28.0-37.0); MCV 102.2 fL (80.0-100.0); MONOCYTES 7.2 % (1.0-8.0); PLATELET COUNT 143 thou/uL (150-400); POLYS 47.7 % (36.0-66.0); RBC 2.86 mil/uL (4.20-5.00); RDW 16.5 % (10.5-14.5); WBC 6.9 thou/uL (4.0-11.0)
[2017-04-23 18:30] LABS: MANUAL DIFF NO
[2017-04-23 18:36] LABS: CALCIUM 7.9 mg/dL (8.5-10.1); CREATININE 1.2 mg/dL (0.6-1.0); POTASSIUM 3.6 mmol/L (3.5-5.1)
[2017-04-23 18:42] LABS: ALBUMIN 1.7 g/dL (3.4-5.0); DIRECT BILIRUBIN 0.3 mg/dL (<0.1-0.3); TOTAL BILIRUBIN 0.8 mg/dL (<0.1-1.0); TOTAL PROTEIN 6.4 g/dL (6.4-8.2)
[2017-04-23 18:43] LABS: INR 1.2; PROTIME 12.2 Seconds (9.3-11.4)
[2017-04-23 20:15] VITALS: BP 134/46
[2017-04-24] VITALS (7 sets, daily range): BP systolic 90–151; BP diastolic 40–69
[2017-04-24 05:17] LABS: HEMATOCRIT 26.5 % (37.0-47.0); HEMOGLOBIN 8.6 gm/dL (12.0-15.0); MCH 34.1 pg (26.0-34.0); MCHC 32.6 g/dL (28.0-37.0); MCV 104.6 fL (80.0-100.0); RBC 2.53 mil/uL (4.20-5.00); RDW 16.9 % (10.5-14.5); WBC 6.1 thou/uL (4.0-11.0)
[2017-04-24 05:35] LABS: ALBUMIN 1.5 g/dL (3.4-5.0); CALCIUM 7.8 mg/dL (8.5-10.1); CREATININE 1.2 mg/dL (0.6-1.0); POTASSIUM 4.1 mmol/L (3.5-5.1); TOTAL BILIRUBIN 0.6 mg/dL (<0.1-1.0); TOTAL PROTEIN 5.9 g/dL (6.4-8.2)
[2017-04-24 13:33] LABS: BF NUCLEATED CELLS 312; BF RBC 413
[2017-04-24 14:49] LABS: MANUAL DIFF YES
[2017-04-24 14:50] LABS: BF MACROPHAGE 20; BF NEUTROPHILS 1; CLARITY HAZY; COLOR YELLOW; TOTAL VOLUME 60 mL
[2017-04-25 04:40] VITALS: BP 110/51
[2017-04-25 04:47] LABS: HEMATOCRIT 28.9 % (37.0-47.0); HEMOGLOBIN 9.4 gm/dL (12.0-15.0); MCH 33.7 pg (26.0-34.0); MCHC 32.5 g/dL (28.0-37.0); MCV 103.6 fL (80.0-100.0); RBC 2.79 mil/uL (4.20-5.00); RDW 16.7 % (10.5-14.5); WBC 6.2 thou/uL (4.0-11.0)
[2017-04-25 05:08] LABS: ALBUMIN 1.5 g/dL (3.4-5.0); CALCIUM 7.9 mg/dL (8.5-10.1); CREATININE 1.3 mg/dL (0.6-1.0); TOTAL BILIRUBIN 0.6 mg/dL (<0.1-1.0); TOTAL PROTEIN 6.4 g/dL (6.4-8.2)
[2017-04-25 07:30] VITALS: BP 87/41
[2017-04-25 11:07] VITALS: BP 104/70
[2017-04-25 12:07] LABS: BODY FLUID ALBUMIN 0.3 g/dL (()); BODY FLUID GLUCOSE 129 mg/dL (()); BODY FLUID LDH 73 IU/L (()); BODY FLUID PROTEIN 1.1 g/dL (())
[2017-04-25 16:28] VITALS: BP 94/43
[2017-04-25 20:30] VITALS: BP 110/71
[2017-04-26 04:55] VITALS: BP 105/66
[2017-04-26 09:14] VITALS: BP 136/85
[2017-04-26 12:30] VITALS: BP 145/85
[2017-04-26] MEDS ORDERED: CEFUROXIME500 MG PO (12:54)
[2017-04-26] MEDS ORDERED: DURAGESIC25 MCG/HR TRANSDERM (12:55)
[2017-04-26 17:30] VITALS: BP 111/45
[2017-04-26 20:00] VITALS: BP 105/48
[2017-04-27 04:00] VITALS: BP 96/62
[2017-04-27 07:16] VITALS: BP 98/54
[2017-04-27] MEDS ORDERED: XANAX 0.25 MG0.25 MG PO (10:44)
[2017-04-27] MEDS ORDERED: ZANAFLEX4 MG PO (10:44)
[2017-04-27 11:15] VITALS: BP 91/46
[2017-04-27 15:16] VITALS: BP 107/61
[2017-04-27 20:00] VITALS: BP 102/69
[2017-04-28 04:00] VITALS: BP 97/52
[2017-04-28 07:55] VITALS: BP 92/65
== END 2017-04-28 16:49 | DRG 441 ==
LOC: ER 17:24 → 3W 19:36 → EROBS 19:36 → 3W 20:16
PROVIDERS: Emergency Medicine; Hospitalist; Internal Medicine Pulmonary Disease; Nurse Practitioner Family
PROC: 05HB33Z Insertion of Infusion Device into Right Basilic Vein, Percutaneous Approach (ICD-10-PCS; principal; 2017-04-23)
PROC: 0W993ZZ Drainage of Right Pleural Cavity, Percutaneous Approach (ICD-10-PCS; 2017-04-24)
PROC: 0W993ZZ Drainage of Right Pleural Cavity, Percutaneous Approach (ICD-10-PCS; 2017-04-27)
DX: K76.0 Fatty (change of) liver, not elsewhere classified (principal); E43 Unspecified severe protein-calorie malnutrition; J18.9 Pneumonia, unspecified organism; N17.9 Acute kidney failure, unspecified; J90 Pleural effusion, not elsewhere classified; R18.8 Other ascites; F11.20 Opioid dependence, uncomplicated; J98.11 Atelectasis; I13.0 Hypertensive heart and chronic kidney disease with heart failure and stage 1 through stage 4 chronic kidney disease, or unspecified chronic kidney disease; F41.9 Anxiety disorder, unspecified; F32.9 Major depressive disorder, single episode, unspecified; G89.29 Other chronic pain; M54.9 Dorsalgia, unspecified; K21.9 Gastro-esophageal reflux disease without esophagitis; I50.9 Heart failure, unspecified; R10.9 Unspecified abdominal pain; R13.10 Dysphagia, unspecified; D63.8 Anemia in other chronic diseases classified elsewhere; K58.9 Irritable bowel syndrome, unspecified; K31.9 Disease of stomach and duodenum, unspecified; N18.9 Chronic kidney disease, unspecified; I27.20 Pulmonary hypertension, unspecified; Z68.36 Body mass index [BMI] 36.0-36.9, adult; Z90.49 Acquired absence of other specified parts of digestive tract; Z90.710 Acquired absence of both cervix and uterus; Z79.899 Other long term (current) drug therapy; Z86.73 Personal history of transient ischemic attack (TIA), and cerebral infarction without residual deficits; Z88.6 Allergy status to analgesic agent; Z79.4 Long term (current) use of insulin; Z88.1 Allergy status to other antibiotic agents; Z88.8 Allergy status to other drugs, medicaments and biological substances; E11.22 Type 2 diabetes mellitus with diabetic chronic kidney disease
CPT/HCPCS: 10779; 27001

== ENCOUNTER 2017-06-08 14:26 | Inpatient (IN) | payer OTHER ==
[2017-06-08] VITALS (17 sets, daily range): BP systolic 73–170; BP diastolic 42–92
[~2017-06-08] VITALS: Ht 160 cm; Wt 96.7 kg
--- NOTE | ~2017-06-08 | EKG ---
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
--- NOTE | ~2017-06-08 | S ---
[facility] [place] [address] [place] [address] SURGICAL PATH RPT PROCEDURE Name: EDWIN BARON Room #: 245-P ADM IN M.R.#: [id number] Admission: 06/08/17 Date of : 50 Discharge: Report #: [id number] Path Case #: [id number] PATHOLOGY REPORT COLLECTION DATE: 06/12/2017 RECEIVED DATE: 06/13/2017 SUBMITTING PHYS: Dr. Joselito Carbajal OTHER PHYS: Joshua Mann Dr., Dr. SPECIMEN(S) RECEIVED: A.Peripheral smear * * * * * * * * * * * * FINAL DIAGNOSIS: Peripheral smear: - Moderate thrombocytopenia. See comment. - Moderate normocytic normochromic anemia. - Mild leukopenia. COMMENT: The peripheral smear shows moderate thrombocytopenia, moderate normocytic normochromic anemia, and mild leukopenia. The etiology of the thrombocytopenia and anemia is not readily apparent from review of the peripheral smear morphology. There is no evidence of a red cell fragmentation syndrome or hemolysis. With regards to the thrombocytopenia, would consider an immune thrombocytopenia. There are no circulating blasts identified. (MINERVAM:; 06/13/2017) PATHOLOGIST: Sahil Banuelos M.D. REPORT ELECTRONICALLY SIGNED BY: Sahil Banuelos M.D. DATE/TIME: 06/13/2017 17:00 * * * * * * * * * * * * MICROSCOPIC DESCRIPTION: Laboratory Data: The WBC count is 3.2 K/CMM, and the automated WBC differential reveals 51.5% neutrophils, 34.7% lymphs, 8.5% monos, 4.2% eos, and 1.1% baso. The RBC count is 2.65 M/CMM, hemoglobin 8.7 G/DL, hematocrit 25.9%, MCV 98.1 FL, MCH 32.9 PG, MCHC 33.5 G/DL, and the RDW is 14.5%. The platelet count is 59 K/CMM. Peripheral Smear: The peripheral smear is reviewed. The WBC count is mildly decreased. The WBC differential reveals a predominance of segmented neutrophils, with smaller populations of lymphocytes and monocytes [address] [address] SURGICAL PATH RPT PROCEDURE Name: EDWIN BARON Room #: 245-P ADM IN M.R.#: [id number] Admission: 06/08/17 Date of : 50 Discharge: Report #: [id number] Path Case #: [id number] and a few eosinophils noted. Neutrophils do not show dysplastic changes. There is a rare circulating myelocyte. However, there is no significant neutrophilic left shift. There are circulating blasts. There is no leukoerythroblastic reaction. The lymphocyte population consists predominantly of small mature appearing lymphocytes. A few reactive lymphocytes are noted. Red blood cells predominantly appear normochromic and normocytic. Red blood cells show only mild anisocytosis and no significant poikilocytosis. Platelets are moderately decreased and appear normal in morphology with an occasional large platelet noted. CLINICAL HISTORY: None Provided INITIAL CPT CODE(S): A; NC Professional services performed by [facility] at [facility], [address] [place] [address]. Technical services performed by [facility] at [address] [place] [address], [address], [place] [address]. [facility] [address] [place] [address] PHONE: [phone] DIRECTOR: Gera Garcia M.D. * * * END OF REPORT * * *
--- NOTE | ~2017-06-08 | CNG ---
[facility] [place] [address] CYTO-NONGYN REPORT PROCEDURE Name: EDWIN BA Room #: 245-P ADM IN M.R.#: [id number] Admission: 06/08/17 Date of : 50 Discharge: Report #: [id number] Path Case #: [id number] CYTOPATHOLOGY REPORT COLLECTION DATE: 06/08/2017 RECEIVED DATE: 06/09/2017 SUBMITTING PHYS: Dr. Juan Miguel Guerrero OTHER PHYS: Joshua Orozco Dr., Dr. CLINICAL HISTORY: Pleural effusion, hypoxia, lactic acidosis, cirrhosis SPECIMEN(S) RECEIVED: A.Pleural fluid, Right * * * * * * * * * * * * FINAL DIAGNOSIS: A. Pleural fluid, Right: - No malignant cells identified. - Highly reactive mesothelial cells and neutrophils identified. COMMENT: Immunohistochemical stains performed on the cell block with appropriately reactive controls show the reactive mesothelial cells are highlighted by Calretinin and AE1/AE3. A Jony-EP4 and D2-40 stain are negative. PATHOLOGIST: Yossi Cordova M.D. REPORT ELECTRONICALLY SIGNED BY: Yossi Cordova M.D. DATE/TIME: 06/14/2017 10:19 * * * * * * * * * * * * GROSS PATHOLOGY: A. Pleural fluid, Right: The specimen is submitted unfixed, labeled "Edwin Ba". Received by the Cytology Department is 16 mL of cloudy light yellow fluid. One ThinPrep slide and a formalin fixed cell block were prepared. (lg06.09.2017) DRY CLEANER APPRENTICE(S): YIMI West([facility]) INITIAL CPT CODE(S): A; 34712, 94002, 32807, 43794, 03751, 66951 [facility] [address], [place] [address] [facility] [address] [place] [address] CYTO-NONGYN REPORT PROCEDURE Name: EDWIN BA Room #: 245-P [facility] IN M.R.#: [id number] Admission: 06/08/17 Date of : 50 Discharge: Report #: [id number] Path Case #: [id number] [facility] performed by [facility] at [address] [place] [address], [address], [place] [address]. [address], [facility] [address] [place] [address] PHONE: [phone] DIRECTOR: Gera Garcia M.D. * * * END OF REPORT * * *
--- NOTE | ~2017-06-08 | HC ---
[facility] [place] [address] CONSULTATION Name: EDWIN BARON Room #: 207-P [facility] IN ..#: [id number] Admission: 06/08/17 Attend Phys: Chase Pineda MD Discharge: 06/16/17 Date of : 50 Report #: [id number] THIS REPORT FOR: //name// CC: Chase Yanes DATE OF SERVICE: 06/08/2017 REASON FOR CONSULTATION: Pleural effusion. IMPRESSION: 1. Pleural effusion, likely secondary to liver disease. However, we will need to further evaluate. 2. Question aspiration pneumonia. 3. Hypercapnic respiratory failure. 4. Elevated ammonia. 5. Anemia. 6. History of non-alcoholic steatohepatitis/cirrhosis. 7. Protein-calorie malnutrition. 8. History of hypertension. 9. Diabetes. PLAN: Thoracentesis today. We will repeat tomorrow. May need paracentesis. GI to see. We will place on Unasyn for tonight. Aerosol therapy. SCDs. Again, GI to see. HISTORY: A very pleasant 66-year-old female who was in hospital in April with pleural effusion, progressive shortness of breath, was in a few days back with some abdominal pain. Today, comes in with progressive shortness of breath, abdominal pain. No definite fever or chills. Positive for cough, no sputum production. PAST SURGICAL HISTORY: Include tonsillectomy, appendectomy, laparoscopic cholecystectomy, , hysterectomy, tubal ligation. Past spine surgery, elbow surgery, right carpal tunnel surgery, Bhanu fundoplication, back surgery, right knee surgery and ankle surgery. ALLERGIES: INCLUDE ASPIRIN, CARBAMAZEPINE, DICLOFENAC, PEPCID, METFORMIN, REGLAN, MISOPROSTOL, PROCHLORPERAZINE, SEROQUEL, RANITIDINE, TETRACYCLINE. MEDICATIONS: Medicine list is being compiled. Meds in computer include metoprolol, Zofran, Protonix, gabapentin, insulin, mirtazapine, Carafate, tizanidine, buspirone, spironolactone, duloxetine, Lasix, Belsomra, Flonase. FAMILY HISTORY: Noncontributory. [facility] [address] [place] [address] CONSULTATION Name: EDWIN BARON Room #: 207-P [facility] IN [facility].#: [id number] Admission: 06/08/17 Attend Phys: Chase Pineda MD Discharge: 06/16/17 Date of : 50 Report #: [id number] SOCIAL HISTORY: Negative tobacco or EtOH. 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 Pneumovax 2012. PHYSICAL EXAMINATION: VITAL SIGNS: Temperature 36.4, pulse 75, respirations 26, BP 170/92. EYES: Negative icterus. NECK: Negative JVD. LUNGS: Decreased on the right, dull. HEART: Regular. ABDOMEN: Bowel sounds present. Distended, question fluid. EXTREMITIES: Showed no edema. NEUROLOGIC: Alert, oriented. <ELECTRONICALLY SIGNED> By: Juan Miguel Guerrero MD 06/19/17 1251 1815 0049 Juan Miguel Guerrero MD /nt
--- NOTE | ~2017-06-08 | EKG ---
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 : 1950 Requested By: Kosta Hidalgo Order Number: [id number] MD: Jose Gagnon Measurements Intervals [place] Rate: 96 P: 25 TX: 130 QRS: 2 QRSD: 64 T: 132 QT: 392 QTc: 496 Interpretive Statements Atrial fibrillation Low voltage, precordial leads Nonspecific T abnormalities Borderline prolonged QT interval Baseline wander in lead(s) V3 Compared to ECG 06/08/2017 14:33:56 QT interval has shortened Electronically Signed On 06-12-2017 10:03:12 TRACTOR DRIVER by Jose Gagnon [email or web address] <ELECTRONICALLY SIGNED> By: Jose Gagnon MD, [facility] 06/12/17 1003 1727 1727 Jose Gagnon MD, [facility] /EPI
--- NOTE | ~2017-06-08 | HC ---
[facility] [place] [address] CONSULTATION Name: EDWIN BARON Room #: 245-P [facility] IN M.R.#: [id number] Admission: 06/08/17 Attend Phys: Chase Pineda MD Discharge: Date of : 50 Report #: [id number] THIS REPORT FOR: //name// CC: Pilar Yanes ____ primary care doctor. REQUESTING PHYSICIAN: Dr. Chase Pineda. REASON FOR CONSULTATION: Thrombocytopenia. HISTORY OF PRESENT ILLNESS: The patient is a very pleasant 66-year-old female from the [place] area who usually grew up near [facility] had been seen by my of Dr. Joselito Sepulveda back in 2013. She recently was admitted for increasing shortness of breath and exercise intolerance. Before that, she denied any unusual fevers or chills. She did have abdominal swelling from the ascites, did have some slight leg swelling, did have the shortness of breath with cough, little bit productive but not much. No bleeding. No blood in her urine or stool. She describes some blood blisters I believe, and no bleeding from her ear or from her nose or from her eyes. She may have some from her stool, but she is not very clear about this. Her weight has been stable. PAST MEDICAL HISTORY: Notable for a history of non-alcoholic liver disease and also fundoplication without any varices. She has had a fundoplication for esophageal reflux, her esophageal stricture had to get stretched periodically. She also has a history of hypertension, diabetes, chronic low back pain, and supposedly history of manic depressive disease. From old records, history of urinary incontinence, type 2 diabetes. Carpal tunnel release in the past, appendectomy, cholecystectomy, tonsillectomy, right nephrectomy for uncertain reasons in the past mentioned by Dr. Sepulveda. SOCIAL HISTORY: , nonsmoker, no alcohol, no street drugs. 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 She has 3 pets at home including a Great Dwaine, it is fairly old called Berna. She also has a Abdi Huey Terrier called Kel Zhane. She also has a cat named Miguel, I believe she lives with. FAMILY HISTORY: Sounds like her mother had from complications from melanoma, was fairly old. No one else with any blood issues that she is aware of. X-ray reviews recently do not show any splenomegaly, they do should show [facility] [address] [address] CONSULTATION Name: EDWIN BARON Room #: 245-P [facility] IN M.R.#: [id number] Admission: 06/08/17 Attend Phys: Chase Pineda MD Discharge: Date of : 50 Report #: [id number] the liver is slightly smaller and lobulated. They do show the ascites and also pleural effusions. No lymphadenopathy present. No lung masses. MEDICATIONS: Currently include electrolyte replacements, furosemide 40 daily, spironolactone 50 daily, rifaximin 550 b.i.d., metoprolol 100 mg put on hold, duloxetine 120 daily, spironolactone had been on hold at a higher dose of 100 mg. She is also on ampicillin and sulbactam q.6h., gabapentin 400 t.i.d., insulin on a sliding scale and also detemir 20 mg at bedtime, Carafate 1 gram b.i.d., docusate 100 mg b.i.d., hydroxyzine 50 mg at bedtime, 25 mcg fentanyl patch every 72 hours, hydrocodone 1 tab q.4h. p.r.n., nitroglycerin p.r.n., tizanidine 4 mg t.i.d., albuterol sulfate 2.5 mg respiratory therapy q.6h. LABORATORY DATA: Review on this admit notable for BUN of 7, creatinine 0.9. Liver function has had an AST of 37; total bilirubin 0.4; direct bilirubin 0.2; alkaline phosphatase 196, had not been elevated this high in the past; ____ 20. Albumin 1.3. Ammonia 41, had been elevated this high back in December, but in between had been 29 and 19. Iron tests back in September had been an iron of 34, TIBC of 139, percent saturation 24. Coags normal. Fibrinogen slightly low at 200.4 at the lower range of normal 210. Recent WBC 2.8, slightly lower than usual. MCV 99.3, hemoglobin 8.4, hemoglobin usually looks like in the past has been between 8.6 and 10.5, platelets 53 today, on admission on 05/23 was 137, back in April 105 range; back in November, had been 120,000 to 160,000. Note that recent differential did have 4 atypical lymphocytes. Note that back in September, had a TSH 8.1, ferritin was 74, folate at 4.1 from this most recent April, not on folate replacement; vitamin B12 1517 from September last year. Hepatitis markers in the past have been normal. Note that the patient had been tested, was negative for hepatitis A, B, C and HIV. A 125-hydroxyvitamin D had been low end of normal. We will check a 25-hydroxy. Note the patient had a bone marrow biopsy in 02/2014. Cytogenics both normal and by FISH were normal. Note, the patient was thought to have only a trace of iron, was thought that may be able a little bit of the dyspoiesis, but not enough to call myelodysplasia, it might have been related to other health issues. Note that during this admission, the patient was thought to have a fluid accumulation both in the lung and abdomen related to her liver disease and has been considered for a TIPS procedure. PHYSICAL EXAMINATION: GENERAL: The patient appears her stated age. VITAL SIGNS: Height is 5 feet 3 inches, 160 cm. Weight is 208 pounds, which is 94.3 kilograms. Blood pressure is 96/57, O2 sat 100, respirations 23, pulse 75, temperature 97.8 axillary. MOOD: She is very alert, very pleasant. NEUROLOGIC: She has good speech pattern, good thought process, moving extremities. HEENT: Oropharynx is clear without injection, erythema or leukoplakia. LUNGS: Lung bases seem slightly dull. [address] [address] CONSULTATION Name: EDWIN BARON Room #: 245-P ADM IN M.R.#: [id number] Admission: 06/08/17 Attend Phys: Chase Pineda MD Discharge: Date of : 50 Report #: [id number] ABDOMEN: No enlarged lymph nodes in the supraclavicular, cervical, axillary region. ABDOMEN: Obese, there is some fluid present. EXTREMITIES: Without clubbing, cyanosis. There is a trace of edema. ASSESSMENT AND PLAN: 1. Thrombocytopenia, chronic with acute exacerbation, maybe related to infection. She has been on Unasyn, but that is probably the low blood counts preceded it. Note that the patient was found to be low on folic acid back in April, was not a replacement, will begin replacement. Also, note the patient's TSH had been borderline elevated back in September, we will recheck. We will also check iron panel given the bone marrow results and questionable iron panel 6 months ago. We will also do a peripheral smear review, also check platelet antibody, immature platelet fraction, very likely related to liver disease. Note that spleen is not enlarged and measures between 12 and 13 cm. We will also check a vitamin D 25-hydroxy. 2. Nonalcoholic liver disease. We will defer to GI whether the patient has questions about possible transplant, I told her this is not my area. 3. Pleural and abdominal fluid, note consideration for TIPS procedure. 4. Slightly low fibrinogen, probably not that critical at 200, would be more concerned if this gets down closer to 100, could give FFP or cryo if needed. 5. Diabetes. Continues insulin. 6. Mood disorder, possible manic depressive disorder, continues to duloxetine and other meds. 7. Liver disease. Continues rifaximin and Aldactone. 8. Hypertension. Metoprolol on hold. 8. Question of atrial fibrillation, defer to others. 9. Elevated ammonia, defer to others. 10. Respiratory failure, defer to Pulmonary. 11. History of esophageal reflux and fundoplication and strictures, we will defer to GI. Last EGD was 09/2016, no varices seen. Last colonoscopy, sometime before that. 12. Four atypical limbs on differential, we will follow, maybe relative viral irritation. <ELECTRONICALLY SIGNED> By: Joselito Carbajal MD 06/13/17 0845 1026 1313 Joselito Carbajal MD /nt
[~2017-06-08 14:26] MED LIST changes: +CEFUROXIME500 MG PO; +DURAGESIC25 MCG/HR TRANSDERM; +XANAX 0.25 MG0.25 MG PO
[2017-06-08 14:55] LABS: BE(vivo) 0.5 mmol/L (-2 to +3); HCO3 26.8 mmol/L (22.0-26.0); PCO2 50.3 mmHg (35.0-45.0); PO2 69.5 mmHg (80.0-100.0); pH 7.344 (7.360-7.450); sO2 92.9 % (92.0-98.0)
[2017-06-08 15:17] LABS: ABSOLUTE NEUTROPHILS 2.9 thou/uL (1.4-8.2); BASOPHILS 1.1 % (0.0-2.0); HEMATOCRIT 33.1 % (37.0-47.0); HEMOGLOBIN 11.1 gm/dL (12.0-15.0); MCH 33.1 pg (26.0-34.0); MCHC 33.5 g/dL (28.0-37.0); MCV 98.7 fL (80.0-100.0); MONOCYTES 5.2 % (1.0-8.0); PLATELET COUNT 137 thou/uL (150-400); POLYS 44.7 % (36.0-66.0); RBC 3.35 mil/uL (4.20-5.00); RDW 14.9 % (10.5-14.5); WBC 6.4 thou/uL (4.0-11.0)
[2017-06-08 15:27] LABS: APTT 27.8 Seconds (24.5-32.8); INR 1.2; PROTIME 12.7 Seconds (9.3-11.4)
[2017-06-08 15:36] LABS: CALCIUM 8.2 mg/dL (8.5-10.1); CREATININE 1.1 mg/dL (0.6-1.0); POTASSIUM 3.7 mmol/L (3.5-5.1)
[2017-06-08 15:39] LABS: ALBUMIN 1.8 g/dL (3.4-5.0); DIRECT BILIRUBIN 0.2 mg/dL (<0.1-0.3); TOTAL BILIRUBIN 0.7 mg/dL (<0.1-1.0); TOTAL PROTEIN 7.1 g/dL (6.4-8.2)
[2017-06-08 17:10] LABS: CLARITY SLIGHTLY CLOUDY; COLOR YELLOW; SOURCE RIGHT CHEST; TOTAL VOLUME 58 mL
[2017-06-08 17:27] LABS: BF NUCLEATED CELLS 109; BF RBC 128
[2017-06-08 17:52] LABS: BF MACROPHAGE 38; BF NEUTROPHILS 7
[2017-06-09] VITALS (77 sets, daily range): BP systolic 55–120; BP diastolic 26–73
[2017-06-09 04:52] LABS: HEMATOCRIT 25.9 % (37.0-47.0); MCH 32.7 pg (26.0-34.0); MCHC 33.1 g/dL (28.0-37.0); MCV 98.8 fL (80.0-100.0); RBC 2.63 mil/uL (4.20-5.00); RDW 14.3 % (10.5-14.5); WBC 4.2 thou/uL (4.0-11.0)
[2017-06-09 04:58] LABS: HEMOGLOBIN 8.6 gm/dL (12.0-15.0)
[2017-06-09 05:00] LABS: POTASSIUM 3.6 mmol/L (3.5-5.1)
[2017-06-09 11:15] LABS: INR 1.4; PROTIME 14.5 Seconds (9.3-11.4)
[2017-06-09 13:11] LABS: BODY FLUID ALBUMIN 0.1 g/dL (()); BODY FLUID AMYLASE 10 U/L (()); BODY FLUID GLUCOSE 161 mg/dL (()); BODY FLUID LDH 39 IU/L (())
[2017-06-09] MEDS ORDERED: REMERON15 MG PO (23:37)
[2017-06-09] MEDS ORDERED: BELSOMRA10 MG PO (23:37)
[2017-06-10] VITALS (47 sets, daily range): BP systolic 80–133; BP diastolic 38–94
[2017-06-10 11:17] LABS: HEMATOCRIT 29.1 % (37.0-47.0); HEMOGLOBIN 9.7 gm/dL (12.0-15.0); MCHC 33.4 g/dL (28.0-37.0); MCV 98.8 fL (80.0-100.0); RBC 2.94 mil/uL (4.20-5.00); RDW 14.6 % (10.5-14.5); WBC 4.9 thou/uL (4.0-11.0)
[2017-06-10 11:25] LABS: CALCIUM 7.3 mg/dL (8.5-10.1); CREATININE 0.9 mg/dL (0.6-1.0); POTASSIUM 3.7 mmol/L (3.5-5.1)
[2017-06-11] VITALS (27 sets, daily range): BP systolic 70–134; BP diastolic 27–90
[2017-06-11 04:37] LABS: SOURCE CHEST FLUID
[2017-06-11 04:43] LABS: ABSOLUTE NEUTROPHILS 1.9 thou/uL (1.4-8.2); BASOPHILS 0.8 % (0.0-2.0); EOSINOPHILS 3.8 % (0.0-3.0); HEMATOCRIT 27.5 % (37.0-47.0); HEMOGLOBIN 9.1 gm/dL (12.0-15.0); LYMPHOCYTES 34.2 % (24.0-44.0); MCH 33.1 pg (26.0-34.0); MCHC 33.3 g/dL (28.0-37.0); MCV 99.5 fL (80.0-100.0); MONOCYTES 10.1 % (1.0-8.0); PLATELET COUNT 61 thou/uL (150-400); POLYS 51.1 % (36.0-66.0); RBC 2.76 mil/uL (4.20-5.00); RDW 14.6 % (10.5-14.5); WBC 3.6 thou/uL (4.0-11.0)
[2017-06-11 04:57] LABS: ALBUMIN 1.3 g/dL (3.4-5.0); CALCIUM 7.4 mg/dL (8.5-10.1); CREATININE 0.9 mg/dL (0.6-1.0); MAGNESIUM 1.4 mg/dL (1.8-2.4); POTASSIUM 3.6 mmol/L (3.5-5.1); TOTAL BILIRUBIN 0.4 mg/dL (<0.1-1.0); TOTAL PROTEIN 5.6 g/dL (6.4-8.2)
[2017-06-11 10:16] LABS: APTT 30.6 Seconds (24.5-32.8); FIBRINOGEN 200.4 mg/dL (210-360); INR 1.2; PROTIME 12.6 Seconds (9.3-11.4)
[2017-06-12] VITALS (24 sets, daily range): BP systolic 57–123; BP diastolic 43–101
[2017-06-12 04:38] LABS: HEMATOCRIT 25.2 % (37.0-47.0); HEMOGLOBIN 8.4 gm/dL (12.0-15.0); MCHC 33.2 g/dL (28.0-37.0); MCV 99.3 fL (80.0-100.0); PLATELET COUNT 53 thou/uL (150-400); RBC 2.54 mil/uL (4.20-5.00); RDW 14.3 % (10.5-14.5); WBC 2.8 thou/uL (4.0-11.0)
[2017-06-12 04:53] LABS: CALCIUM 7.6 mg/dL (8.5-10.1); CREATININE 0.9 mg/dL (0.6-1.0); MAGNESIUM 1.6 mg/dL (1.8-2.4); POTASSIUM 3.6 mmol/L (3.5-5.1)
[2017-06-12 05:08] LABS: ABSOLUTE NEUTROPHILS 1.4 thou/uL (1.4-8.2); ATYPICAL LYMPHS 4 %
[2017-06-12 05:09] LABS: PLATELET ESTIMATE DECREASED
[2017-06-12 05:39] LABS: BE(vivo) -0.1 mmol/L (-2 to +3); HCO3 26.1 mmol/L (22.0-26.0); PCO2 50.3 mmHg (35.0-45.0); PO2 114.1 mmHg (80.0-100.0); pH 7.333 (7.360-7.450); sO2 97.9 % (92.0-98.0)
[2017-06-12 13:11] LABS: % SATURATION 20 % (20-39); IRON 27 ug/dL (50-170); TIBC 136 ug/dL (250-450)
[2017-06-13] VITALS (25 sets, daily range): BP systolic 55–107; BP diastolic 39–70
[2017-06-13 06:16] LABS: ABSOLUTE NEUTROPHILS 1.7 thou/uL (1.4-8.2); EOSINOPHILS 2.8 % (0.0-3.0); HEMATOCRIT 25.6 % (37.0-47.0); HEMOGLOBIN 8.6 gm/dL (12.0-15.0); LYMPHOCYTES 37.6 % (24.0-44.0); MCH 32.5 pg (26.0-34.0); MCHC 33.5 g/dL (28.0-37.0); MCV 97.1 fL (80.0-100.0); MONOCYTES 8.2 % (1.0-8.0); PLATELET COUNT 60 thou/uL (150-400); POLYS 50.4 % (36.0-66.0); RBC 2.64 mil/uL (4.20-5.00); RDW 14.5 % (10.5-14.5); WBC 3.4 thou/uL (4.0-11.0)
[2017-06-13 06:39] LABS: CALCIUM 7.9 mg/dL (8.5-10.1); CREATININE 0.8 mg/dL (0.6-1.0); MAGNESIUM 1.5 mg/dL (1.8-2.4); POTASSIUM 3.6 mmol/L (3.5-5.1)
[2017-06-13 21:02] LABS: ABSOLUTE NEUTROPHILS 1.9 thou/uL (1.4-8.2); BASOPHILS 1.5 % (0.0-2.0); EOSINOPHILS 3.3 % (0.0-3.0); HEMATOCRIT 27.3 % (37.0-47.0); HEMOGLOBIN 9.2 gm/dL (12.0-15.0); LYMPHOCYTES 43.6 % (24.0-44.0); MCH 32.9 pg (26.0-34.0); MCHC 33.7 g/dL (28.0-37.0); MCV 97.6 fL (80.0-100.0); PLATELET COUNT 74 thou/uL (150-400); POLYS 43.6 % (36.0-66.0); RDW 14.1 % (10.5-14.5); WBC 4.4 thou/uL (4.0-11.0)
[2017-06-13 21:12] LABS: ALBUMIN 1.4 g/dL (3.4-5.0); CALCIUM 7.8 mg/dL (8.5-10.1); POTASSIUM 3.3 mmol/L (3.5-5.1); TOTAL BILIRUBIN 0.4 mg/dL (<0.1-1.0); TOTAL PROTEIN 5.7 g/dL (6.4-8.2)
[2017-06-13 21:20] LABS: APTT 28.7 Seconds (24.5-32.8); INR 1.2; PROTIME 11.9 Seconds (9.3-11.4)
[2017-06-14] VITALS (25 sets, daily range): BP systolic 72–137; BP diastolic 44–89
[2017-06-14 05:22] LABS: HEMATOCRIT 25.9 % (37.0-47.0); HEMOGLOBIN 8.6 gm/dL (12.0-15.0); MCH 32.5 pg (26.0-34.0); MCHC 33.3 g/dL (28.0-37.0); MCV 97.8 fL (80.0-100.0); RBC 2.65 mil/uL (4.20-5.00); RDW 14.5 % (10.5-14.5); WBC 3.2 thou/uL (4.0-11.0)
[2017-06-14 05:38] LABS: CALCIUM 7.8 mg/dL (8.5-10.1); CREATININE 0.9 mg/dL (0.6-1.0); MAGNESIUM 1.8 mg/dL (1.8-2.4); POTASSIUM 3.4 mmol/L (3.5-5.1)
[2017-06-14 17:19] LABS: MAGNESIUM 1.9 mg/dL (1.8-2.4); POTASSIUM 3.5 mmol/L (3.5-5.1)
[2017-06-15 00:01] VITALS: BP 118/63
[2017-06-15 04:00] VITALS: BP 116/56
[2017-06-15 05:53] LABS: HEMATOCRIT 27.2 % (37.0-47.0); HEMOGLOBIN 9.3 gm/dL (12.0-15.0); MCH 32.7 pg (26.0-34.0); MCHC 34.1 g/dL (28.0-37.0); MCV 95.8 fL (80.0-100.0); PLATELET COUNT 108 thou/uL (150-400); RBC 2.84 mil/uL (4.20-5.00); RDW 14.7 % (10.5-14.5); WBC 6.4 thou/uL (4.0-11.0)
[2017-06-15 06:07] LABS: CALCIUM 8.2 mg/dL (8.5-10.1); POTASSIUM 3.6 mmol/L (3.5-5.1)
[2017-06-15 08:59] LABS: ABSOLUTE NEUTROPHILS 3.7 thou/uL (1.4-8.2); ANISOCYTOSIS 1+; ATYPICAL LYMPHS 1 %; POLYCHROMASIA OCCASIONAL
[2017-06-15 15:09] VITALS: BP 121/69
[2017-06-15 20:28] VITALS: BP 116/61
[2017-06-16] VITALS: BP 108/53
[2017-06-16 04:48] VITALS: BP 101/51
[2017-06-16 07:31] LABS: MCHC 32.3 g/dL (28.0-37.0); MCV 99.1 fL (80.0-100.0); RBC 2.82 mil/uL (4.20-5.00); RDW 15.2 % (10.5-14.5); WBC 7.8 thou/uL (4.0-11.0)
[2017-06-16 07:44] LABS: ALBUMIN 1.5 g/dL (3.4-5.0); CALCIUM 8.4 mg/dL (8.5-10.1); CREATININE 1.9 mg/dL (0.6-1.0); MAGNESIUM 2.1 mg/dL (1.8-2.4); POTASSIUM 3.8 mmol/L (3.5-5.1); TOTAL BILIRUBIN 0.7 mg/dL (<0.1-1.0)
[2017-06-16 08:00] VITALS: BP 109/60
[2017-06-16 12:00] VITALS: BP 100/45
[2017-06-16] MEDS ORDERED: XIFAXAN550 MG PO (15:50)
[2017-06-16 16:00] VITALS: BP 103/49
[2017-06-16 18:09] VITALS: BP 103/49
== END 2017-06-16 18:14 | disposition short-term general hospital (02) | DRG 441 ==
LOC: ER 14:26 → EROBS 16:19 → ICU 16:19 → 2N 06-15 13:36
PROVIDERS: Emergency Medicine; Hospitalist; Internal Medicine; Internal Medicine Hematology & Oncology; Internal Medicine Pulmonary Disease; Nurse Practitioner; Radiology Diagnostic Radiology
PROC: 0W993ZZ Drainage of Right Pleural Cavity, Percutaneous Approach (ICD-10-PCS; principal; 2017-06-08)
PROC: B548ZZA Ultrasonography of Superior Vena Cava, Guidance (ICD-10-PCS; 2017-06-08)
PROC: 02HV33Z Insertion of Infusion Device into Superior Vena Cava, Percutaneous Approach (ICD-10-PCS; 2017-06-08)
PROC: 0W993ZZ Drainage of Right Pleural Cavity, Percutaneous Approach (ICD-10-PCS; 2017-06-09)
PROC: 0W993ZZ Drainage of Right Pleural Cavity, Percutaneous Approach (ICD-10-PCS; 2017-06-14)
DX: K72.90 Hepatic failure, unspecified without coma (principal); J96.01 Acute respiratory failure with hypoxia; J96.02 Acute respiratory failure with hypercapnia; E46 Unspecified protein-calorie malnutrition; J90 Pleural effusion, not elsewhere classified; E87.2 Acidosis; R18.8 Other ascites; J98.11 Atelectasis; J94.8 Other specified pleural conditions; N17.9 Acute kidney failure, unspecified; I10 Essential (primary) hypertension; F41.9 Anxiety disorder, unspecified; G89.29 Other chronic pain; M54.9 Dorsalgia, unspecified; K21.9 Gastro-esophageal reflux disease without esophagitis; K74.60 Unspecified cirrhosis of liver; D69.6 Thrombocytopenia, unspecified; I27.20 Pulmonary hypertension, unspecified; K75.81 Nonalcoholic steatohepatitis (NASH); F31.9 Bipolar disorder, unspecified; K57.90 Diverticulosis of intestine, part unspecified, without perforation or abscess without bleeding; K31.9 Disease of stomach and duodenum, unspecified; D63.8 Anemia in other chronic diseases classified elsewhere; I48.91 Unspecified atrial fibrillation; E83.42 Hypomagnesemia; R13.10 Dysphagia, unspecified; E55.9 Vitamin D deficiency, unspecified; E87.6 Hypokalemia; I95.9 Hypotension, unspecified; Z90.5 Acquired absence of kidney; Z68.37 Body mass index [BMI] 37.0-37.9, adult; Z88.8 Allergy status to other drugs, medicaments and biological substances; Z87.81 Personal history of (healed) traumatic fracture; Z91.19 Patient's noncompliance with other medical treatment and regimen; Z88.1 Allergy status to other antibiotic agents; Z90.710 Acquired absence of both cervix and uterus; Z90.49 Acquired absence of other specified parts of digestive tract; Z88.6 Allergy status to analgesic agent; Z79.899 Other long term (current) drug therapy; Z86.14 Personal history of Methicillin resistant Staphylococcus aureus infection
CPT/HCPCS: 10078; 10081; 27000; 62110; 62900; 70005